=== PATIENT | female | born 1950 | race Caucasian/White ===

== ENCOUNTER → 2018-01-08 09:11 | Outpatient (CLI) | payer MEDICARE, OTHER, SELFPAY ==
[2018-01-08 10:41] LABS: AST(SGOT) 28 U/L (15-37); Alanine Aminotransfer ALT/SGPT 24 U/L (13-56); Albumin, Serum 3.9 g/dL (3.2-5.0); Alkaline Phosphatase 75 U/L (45-117); Bilirubin, Direct 0.18 mg/dL (0.00-0.30); Cholesterol 144 mg/dL (200); Globulin 3.5 g/dL (2.2-4.2); High Density Lipoprotein 40 mg/dL; Protein, Total 7.4 g/dL (6.4-8.2); Triglycerides 120 mg/dL; Very Low Density Lipoprotein 24 mg/dL (5-40)
== END ==
PROVIDERS: Family Provider Family Medicine; PCP Family Medicine; Visit Provider Internal Medicine Cardiovascular Disease
DX: E78.5 Hyperlipidemia, unspecified (principal); Z79.899 Other long term (current) drug therapy
CPT/HCPCS: 36415; 80061; 80076

== ENCOUNTER → 2018-02-23 14:23 | Outpatient (CLI) | payer MEDICARE, OTHER, SELFPAY ==
--- NOTE | 2018-02-23 14:24 | BI_ITS ---
MAMMOGRAPHY - BILATERAL SCREENING REASON FOR EXAM: Female, 67 years old. Routine annual screening examination. PERTINENT HISTORY: Non-contributory. TECHNIQUE: Digital bilateral breast manasa (3D mammographic acquisition) in the CC and MLO projections. 2-D mediolateral oblique (MLO) and craniocaudad (CC) views of both breasts were obtained. CAD: Full Field Digital Mammography with Computer Added Detection was performed. COMPARISON: Comparison is made with prior outside examination dated January 12, 2017. FINDINGS: Breast Composition: The breasts are heterogeneously dense, which may obscure small masses. There are no dominant masses or suspicious calcifications. No other significant abnormalities are identified. There has been no significant change since the prior study. BI/SCREENING MAMM (CAD), BILAT IMPRESSION: Stable bilateral screening mammogram. Yearly follow-up mammogram recommended. (A) ASSESSMENT CATEGORY: BIRADS Category 1: Negative. A letter regarding these results will be sent to the patient by the facility within 30 days. Approximately 10% of breast cancers are not detected by mammography. A normal mammogram should not delay biopsy of a clinically suspicious abnormality. [id number] Electronically Signed: Hugh Perry MD at 8:13 EDT Tel [phone], Service support ,
== END ==
PROVIDERS: Family Provider Family Medicine; PCP Family Medicine; Visit Provider Nurse Practitioner Women's Health
DX: Z12.31 Encounter for screening mammogram for malignant neoplasm of breast (principal)
CPT/HCPCS: 77063; 77067

== ENCOUNTER → 2018-08-13 09:22 | Outpatient (CLI) | payer MEDICARE, OTHER, SELFPAY ==
[2018-08-13 10:42] LABS: AST(SGOT) 28 U/L (15-37); Alanine Aminotransfer ALT/SGPT 26 U/L (13-56); Albumin, Serum 3.9 g/dL (3.2-5.0); Alkaline Phosphatase 71 U/L (45-117); Bilirubin, Direct 0.16 mg/dL (0.00-0.30); Cholesterol 148 mg/dL (200); Globulin 3.3 g/dL (2.2-4.2); High Density Lipoprotein 42 mg/dL; Protein, Total 7.2 g/dL (6.4-8.2); Triglycerides 162 mg/dL; Very Low Density Lipoprotein 32 mg/dL (5-40)
== END ==
PROVIDERS: Family Provider Family Medicine; PCP Family Medicine; Referring Provider Internal Medicine Cardiovascular Disease; Visit Provider Internal Medicine Cardiovascular Disease
DX: E78.5 Hyperlipidemia, unspecified (principal)
CPT/HCPCS: 36415; 80061; 80076

== ENCOUNTER → 2018-09-10 12:40 | Outpatient (CLI) | payer MEDICARE, OTHER, SELFPAY ==
[2018-08-14 07:33] VITALS: BMI 24.0
--- NOTE | 2018-09-10 12:42 | ECHOCS_ITS ---
Reason For Study: HTN Procedure This was a 2D Doppler, Color Flow transthoracic echocardiogram. Contrast injection was performed. Exam performed in department. Left Ventricle Normal LV size. Left ventricular systolic function is lower limits of normal. The estimated ejection fraction is 50 %. Septal motion consistent with IVCD. Stage 1 diastolic dysfunction. No regional wall motion abnormalities noted. Right Ventricle Normal RV size. Normal systolic function. Atria Normal left atrium. Normal right atrium. Mitral Valve Normal mitral valve. Tricuspid Valve Normal tricuspid valve. Mild tricuspid valve insufficiency. Aortic Valve Trisinus/trileaflet aortic valve. Mild (1+) eccentric aortic valve insufficiency. Pulmonic Valve The pulmonic valve is not well visualized. Great Vessels Normal aortic root. Pericardium/Pleural No pericardial effusion. Medication Definity0.3ml given slow IV push to enhance endocardial definition. MMode/2D Measurements & Calculations LVIDd: 4.2 cm IVSd: 1.4 cm LVOT diam: 2.0 cm LVIDs: 3.2 cm LVPWd: 1.0 cm RVDd: 2.9 cm FS: 24.5 % LVOT area: 3.1 cm2 Ao root diam: 3.2 cm LAV(MOD-bp): 34.9 ml LVAd ap4: 25.9 cm2 LAV(MOD-bp) Indexed: 20.7 ml/m2 EDV(MOD-sp4): 73.4 ml LAV(MOD-sp2): 37.4 ml EDV(sp4-el): 79.3 ml LAV(MOD-sp4): 31.1 ml LVAs ap4: 15.9 cm2 ESV(MOD-sp4): 36.8 ml ESV(sp4-el): 37.9 ml EF(MOD-sp4): 49.9 % EF(sp4-el): 52.3 % SV(MOD-sp4): 36.6 ml SV(sp4-el): 41.5 ml LA A4 area: 13.0 cm2 LA dimension(2D): 3.5 cm RA A4 area: 9.0 cm2 Doppler Measurements & Calculations MV E max trever: 50.4 cm/sec Lat Peak E' Trever: 7.0 cm/sec Med Peak E' Trever: 4.1 cm/sec MV A max trever: 83.2 cm/sec E/E' lat: 7.2 E/E' med: 12.2 MV E/A: 0.61 Ao V2 max: 191.3 cm/sec AI max trever: 375.4 cm/sec LV V1 max: 99.7 cm/sec Ao max P.6 mmHg AI max P.5 mmHg LV V1 max P.0 mmHg Ao V2 mean: 126.0 cm/sec LV V1 mean P.1 mmHg Ao mean P.2 mmHg AI dec slope: 264.7 cm/sec2 LV V1 mean: 69.8 cm/sec Ao V2 VTI: 36.8 cm AI P1/2t: 415.4 msec LV V1 VTI: 20.8 cm ANDRZEJ(I,D): 1.7 cm2 ANDRZEJ(V,D): 1.6 cm2 SV(LVOT): 63.7 ml PA V2 max: 95.9 cm/sec TR max trever: 199.7 cm/sec TR max P.0 mmHg Interpretation Summary Normal LV size. Left ventricular systolic function is lower limits of normal. The estimated ejection fraction is 50 %. Septal motion consistent with IVCD. Stage 1 diastolic dysfunction. Contrast injection was performed. Compared to previous study, the left ventricular systolic function has improved.. Ordering Physician: Luis Mcclelland Referring Physician: Jodi Duong Performed By: Sveta Riley RDCS, RVT
== END ==
PROVIDERS: Family Provider Family Medicine; PCP Family Medicine; Referring Provider Internal Medicine Cardiovascular Disease; Visit Provider Internal Medicine Cardiovascular Disease
DX: I44.7 Left bundle-branch block, unspecified (principal)
CPT/HCPCS: 93306; Q9957; A4216; C8929

== ENCOUNTER 2018-09-26 13:00 | Outpatient (RCR) | payer MEDICARE, OTHER, SELFPAY ==
[2018-08-14 07:33] VITALS: BMI 24.0
--- NOTE | 2018-09-07 16:20 | HP.PTEVAL_ITS ---
Patient's Visit Information LOCO LARSON is a 67 year old F referred to Physical Therapy by Jodi Duong DO with a diagnosis of RIGHT SHOULDER RTC TENDONITIS. Date of Evaluation: 09/07/18 Physical Therapist: Roe Cat PT, Cert MDT, OCS - Visit Plan Frequency: 2x /Week Duration: 4 Weeks Plan: RTC/SCAPULAR EX'S,MODLATIES US/ESTIM/CP FOR PAIN RELEIVE MISSAEL,POSTURAL EX'S - Subjective Findings: This 67 y/o female presents to physical therapy right rotator cuff tendonitis. Patient has had right shoulder pain for 3 months. Patient reports incidous onset of shoulder pain ,possible with static postion of sewing.Patient reports symptoms worse with reaching back ,putting on coat ,lifting weight . Better with rest. Patient able to sleep okay at night. Patient able to perform ADL'S ,cleaning. 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 Patient seen DR mahnaz tavarez.Patient symptoms affect ADL'S and QOL. HOBBIES: plays piano,travel,sewing. SOCAIL:. 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 PALPATION:tender long head biceps. NEURO: intact. AROM: shoulder 160 degrees,abduction 160 degrees,ER 90 ,80 degrees pain. FUNCTIONAL TEST: reach behind C7,IR L1. MMT: RTC 4/5 SUPRASPINATOUS 4- 5,DELTOID 4-/5 MILD PAIN - Special Tests R Shoulder External Rotation Lag Test - RC Tear: Negative R Shoulder Supine Impingement Test - RC Tear: Negative R Shoulder Lift Off Test - Subscapular Tear: Negative R Shoulder Drop Sign - IS Test: Negative R Shoulder Empty Can - SS: Negative R Shoulder Belly Press - SupScap: Negative R Shoulder Neer - Impingement: Negative R Shoulder R[place]an Bryn - Impingement: Positive R Shoulder AC Resisted - AC: Negative - Goals Goal 1:: Independant with HEP Goal Time Frame: 4-6 Weeks Goal 2:: Patient to decrease shoulder pain by 60% or greater to improve function and ADLS' Goal Time Frame: 4-6 Weeks Goal 3:: Patient improve strength RTC and deltoid 4/5 without pain with activities Goal Time Frame: 4-6 Weeks Goal 4:: Patient to improve DASH QUICK SHOULDER BY 5-10 points to inmprove QOL. Goal Time Frame: 4-6 Weeks Goal 5:: Patient able to perform ADLS' and certain activities without limitaions. - Rehabilitation Potential Physical Therapy Diagnosis: Patient has right shoulder tendonesis /impinghement along with long head bicep tenoditis with pain with IR and and shoulder add along with weakness which impairs ADL'S thus benifit froms skilled PT Rehabilitation Potential: Good - Anticipated Interventions Patient/Client Instruction: Educate patient on: Condition, Plan of Care For the Purpose of:: To decrease pain, To increase ROM, To improve muscle performance and motor function, To improve ability to perform ADL's, To improve ability of physical actions for home/community/work/leisure, To improve health of tissue, To decrease soft tissue restriction, To increase flexibility/ROM, To improve ability to perform tasks related to life management Therapeutic Exercise to Include: Strength training, Postural training, Flexibilty training, Active ROM, Scapular Strength/Stabilization Comment: RTC For the Purpose of:: To decrease pain, To increase ROM, To increase tolerance to activity/condition/position, To improve ability of physical actions for home/community/work/leisure, To improve health of tissue, To decrease soft tissue restriction, To increase flexibility/ROM, To improve ability to perform tasks related to life management TENS: Yes IF ES: Yes Cryotherapy (ice pack, ice massage): Yes Thermo therapy (hot pack): Yes Ultrasound (thermal/non thermal): Yes For the Purpose of:: To decrease pain, To increase ROM, To improve nutrient delivery to tissue, To increase oxygenation perfusion, To improve health of tissue, To decrease soft tissue restriction Thank you for the opportunity to evaluate your patient. For Medicare and Medicare HMO plans, please review the plan of care and approve it. It will need to be FAXED BACK to us at [phone] for Medicare purposes. For Medicare only, by signing this I certify the plan of care. Please let me know if there are questions or concerns regarding this plan of care. Physician Signature: Date:
--- NOTE | 2018-09-26 13:46 | HP.PTDCSUM ---
HP - PT D/C Summary It has been my pleasure to treat LOCO LARSON under orders from Jodi Duong DO, for the diagnosis of RIGHT SHOULDER RTC TENDONITIS for a total of 7 visit(s). Discharge Date: 09/26/18 Please see the following information for a summary of their discharge status. - Subjective Subjective: Pain is worse with certain activities .Overall stronger - Pain Right Shoulder Pain Intensity (Out of 10): 0 - Overall Improvement % Improvement: 60 - Objective Objective/Function: POSTURE: mild foward posture. PALAPTION: unremarkable. NEURO: denies parathesia/tingling. AROM: shoulder flexion 15 degrees,abd 150,ER 90 degreesIR L3 PAIN. MMT: RTC 4/5 ,DELTOID 4-/5 pain with abd - Goals Goal 1:: Independant with HEP Goal Progress: Goal Met Goal 2:: Patient to decrease shoulder pain by 60% or greater to improve function and ADLS' Goal Progress: Progressing Goal 3:: Patient improve strength RTC and deltoid 4/5 without pain with activities Goal Progress: Progressing Goal 4:: Patient to improve DASH QUICK SHOULDER BY 5-10 points to inmprove QOL. Goal Progress: Progressing Goal 5:: Patient able to perform ADLS' and certain activities without limitaions. Goal Progress: Progressing - Plan Plan: D/C to [facility] - D/C Information Discharge Comments: [facility] If there are questions or concerns regarding this patient's physical therapy, please feel free to call me at [phone]. Thank you for the referral of this patient. Sincerely, Roe Cat, PT, Cert MDT, OCS
== END 2018-09-26 18:22 | disposition home or self-care (01) ==
LOC: PT 13:00
PROVIDERS: Family Provider Family Medicine; PCP Family Medicine; Referring Provider Family Medicine; Visit Provider Family Medicine
DX: M75.81 Other shoulder lesions, right shoulder (principal)
CPT/HCPCS: 97035; 97110; 97162

== ENCOUNTER → 2019-03-13 | Outpatient (CLI) | payer MEDICARE, OTHER, SELFPAY ==
[2018-08-14 07:33] VITALS: BMI 24.0
[2019-02-07 09:15] VITALS: BMI 24.0
--- NOTE | 2019-03-13 10:38 | BI_ITS ---
MAMMOGRAPHY - BILATERAL SCREENING REASON FOR EXAM: Female, 68 years old. Routine annual screening examination. PERTINENT HISTORY: Non-contributory. TECHNIQUE: Digital bilateral breast margarito (3D mammographic acquisition) in the CC and MLO projections. 2-D mediolateral oblique (MLO) and craniocaudad (CC) views of both breasts were obtained. CAD: Full Field Digital Mammography with Computer Added Detection was performed. COMPARISON: Comparison is made with prior study dated February 23, 2018. FINDINGS: Breast Composition: The breasts are heterogeneously dense, which may obscure small masses. There is a 7.4 mm x 7 mm focal area of architectural distortion along the medial aspect of the left breast. This is not well seen on the MLO views. The patient will be recalled for additional views including compression spot views and 90 degree lateral view. No other significant abnormalities are identified. BI/SCREEN MAMM (CAD) W/MARGARITO BILAT IMPRESSION: Focal area of architectural distortion in the left breast as described. The patient will be recalled for additional views. Recall Side: Left Breast ASSESSMENT CATEGORY: BIRADS Category 0: Incomplete. Need additional imaging evaluation. A letter regarding these results will be sent to the patient by the facility within 30 days. Approximately 10% of breast cancers are not detected by mammography. A normal mammogram should not delay biopsy of a clinically suspicious abnormality. [id number] Electronically Signed: Hugh Perry, at 13:43 EDT , Service support ,
--- NOTE | 2019-03-13 10:55 | BD_ITS ---
STUDY: DUAL ENERGY X-RAY ABSORPTIOMETRY / DXA REASON FOR EXAM: Female, 68 years old. The patient is postmenopausal. Loss of height. TECHNIQUE: Bone Mineral Density (BMD) measurements of lumbar spine and bilateral hips were obtained. COMPARISON: None. FINDINGS: Lumbar Spine (L1-L4): g/cm2 (1.071) / T-score (-0.8) / Z-score (0.8) Findings are suggestive of normal bone density with a low fracture risk. Increased kyphosis. Left Femur Total: g/cm2 (0.808) / T-score (-1.6) / Z-score (-0.1) Left Femoral Neck: g/cm2 (0.721) / T-score (-2.3) / Z-score (-0.6) Right Femur Total: g/cm2 (0.808) / T-score (-1.6) / Z-score (-0.1) Right Femoral Neck: g/cm2 (0.721) / T-score (-2.3) / Z-score (-0.6) BD/Dexa Bone Density Study IMPRESSION: The patient is considered osteopenic as outlined below according to World Jeffery Organization (WHO) criteria with a high fracture risk. Reference Information: The T-score is the number of standard deviations above or below the standard which is normal for young adults at their peak bone mineral density. The World Health Organization (WHO) interprets the T-scores as follows: Above -1 Normal bone density Between -1 and -2.5 Osteopenia Equal to / or below -2.5 Osteoporosis As a practical clinical guideline, osteopenia may be graded as follows: Mild -1 through -1.5 Moderate -1.6 through -2.0 Severe -2.1 through -2.4 The Z-score is the number of standard deviations above or below age-matched controls. A Z-score of less than -1.5 would be considered abnormal. References: 1. NIH Osteoporosis and Related Bone Diseases http://www.osteo.org 2. International Society for Clinical Densitometry http://www.iscd.org 3. National Osteoporosis Foundation http://www.nof.org Electronically Signed: Hugh Perry, at 9:28 EDT , Service support ,
== END | disposition home or self-care (01) ==
LOC: OPBI 10:32
PROVIDERS: Family Provider Family Medicine; PCP Family Medicine; Referring Provider Nurse Practitioner Women's Health; Visit Provider Nurse Practitioner Women's Health
DX: Z12.31 Encounter for screening mammogram for malignant neoplasm of breast (principal); Z78.0 Asymptomatic menopausal state
CPT/HCPCS: 77063; 77067; 77080

== ENCOUNTER → 2019-03-15 | Outpatient (CLI) | payer MEDICARE, OTHER, SELFPAY ==
[2019-02-07 09:15] VITALS: BMI 24.0
--- NOTE | 2019-03-15 09:27 | US_ITS ---
STUDY: ULTRASOUND BREAST - LEFT REASON FOR EXAM: Female, 68 years old. Abnormal screening mammogram. TECHNIQUE: Axial and longitudinal images of the LEFT breast were performed with a high resolution ultrasound transducer. COMPARISON: Comparison is made with prior mammogram done earlier today as well as prior mammogram dated March 13, 2019. FINDINGS: LEFT Breast: The entire medial half of the left breast was examined by ultrasound. No solid or cystic mass lesion is seen. This most likely represents asymmetrical glandular tissue on the mammogram. Routine annual mammogram follow-up is recommended. US/Breast Limited Unilateral IMPRESSION: Unremarkable ultrasound of the medial aspect of the left breast. ASSESSMENT CATEGORY: BIRADS Category 2: Benign. A letter regarding these results will be sent to the patient by the facility within 30 days. Electronically Signed: Hugh Perry, at 11:12 EDT , Service support ,
--- NOTE | 2019-03-15 09:29 | BI_ITS ---
MAMMOGRAPHY - UNILATERAL DIAGNOSTIC: LEFT BREAST REASON FOR EXAM: Female, 68 years old. Abnormal screening mammogram. PERTINENT HISTORY: Non-contributory. TECHNIQUE: Compression spot views of the left breast in the mediolateral oblique and craniocaudad views were obtained. CAD: Full Field Digital Mammography with Computer Added Detection was performed. COMPARISON: Comparison is made with prior mammogram dated March 13, 2019. FINDINGS: Breast Composition: The breasts are heterogeneously dense, which may obscure small masses. Persistent focal area of architectural distortion along the medial aspect of the left breast. Correlation with ultrasound is recommended. No other significant abnormalities are identified. BI/DIAG MAMM W/CAD, UNILAT IMPRESSION: Persistent area of architectural distortion along the medial aspect of the breast as described. Correlation with ultrasound is recommended. ASSESSMENT CATEGORY: BIRADS Category 0: Incomplete. Need additional imaging evaluation. A letter regarding these results will be sent to the patient by the facility within 30 days. Approximately 10% of breast cancers are not detected by mammography. A normal mammogram should not delay biopsy of a clinically suspicious abnormality. Electronically Signed: Hugh Perry, at 10:33 EDT , Service support ,
== END | disposition home or self-care (01) ==
LOC: OPBI 09:26
PROVIDERS: Family Provider Family Medicine; PCP Family Medicine; Referring Provider Nurse Practitioner Women's Health; Visit Provider Nurse Practitioner Women's Health
DX: N64.89 Other specified disorders of breast (principal)
CPT/HCPCS: 76642; 77065

== ENCOUNTER → 2019-04-18 | Outpatient (CLI) | payer MEDICARE, OTHER, SELFPAY ==
[2019-02-07 09:15] VITALS: BMI 24.0
--- NOTE | 2019-04-18 13:01 | RAD_ITS ---
STUDY: X-RAY - RIGHT FOOT CLINICAL: Female, 68 years old. Great toe pain and swelling TECHNIQUE: 3 view(s) of the foot. COMPARISON: None. FINDINGS: Normal talus, calcaneus, and tarsal bones. Normal visualized subtalar, talonavicular, calcaneocuboid, tarsal and tarsometatarsal articulations. Normal metatarsi. There is degenerative arthrosis of the metatarsophalangeal joint of the hallux . Normal tibial and fibular sesamoid bones. Normal interphalangeal joint of the great toe. Normal phalanges of the great toe. Normal second through fifth metatarsophalangeal joints. PIP and DIP joint arthrosis. The soft tissue structures are unremarkable. RAD/Foot min 3 Views IMPRESSION: No demonstrated fracture. However, subtle fracture could be present and overlooked due to the overlapping osseous structures. If fracture remains a strong clinical concern, recommend further evaluation with CT First MTP joint, as well as PIP and DIP joint arthrosis Electronically Signed: Mitch Hayes MD at 17:03 EDT , Service support ,
== END | disposition home or self-care (01) ==
LOC: HPRAD 12:58
PROVIDERS: Family Provider Family Medicine; PCP Family Medicine; Referring Provider Family Medicine; Visit Provider Family Medicine
DX: M79.671 Pain in right foot (principal); M79.674 Pain in right toe(s)
CPT/HCPCS: 73630

== ENCOUNTER → 2019-07-12 13:10 | Outpatient (CLI) | payer MEDICARE, OTHER, SELFPAY ==
[2019-02-07 09:15] VITALS: BMI 24.0
--- NOTE | 2019-07-12 13:45 | MRI_ITS ---
STUDY: MRI BRAIN WITH AND WITHOUT CONTRAST (ATTENTION INTERNAL AUDITORY CANALS - I.A.C.'s) REASON FOR EXAM: Female, 68 years old. Vertigo. History of prior right ear surgery. TECHNIQUE: Standardized multiplanar fat and water weighted pulse sequences were obtained. IV Dotarem 14 was administered for the contrast portion of the examination. COMPARISON: MRI of the brain with and without contrast 03/06/2017. FINDINGS: No restricted diffusion to suspect acute or subacute ischemic infarct. No suspicious focal signal abnormalities throughout the brain parenchyma. 1.3 x 0.9 x 1.3 cm T2 hyperintensity focus in the right mastoid antrum. No definite involvement or extension into the semicircular canals of the right membranous labyrinth. There is minimal peripheral contrast enhancement. It is mildly hypointense on T1 and more hypointense on the fat suppression sequence. It is also hypointense on T2 FLAIR sequence. Normal nonenhancing right 7th and 8th nerve bundles. No abnormal contrast enhancement of the right membranous labyrinth. Normal left 7th and 8th nerve bundles without abnormal contrast enhancement. Normal left membranous labyrinth. There is no demonstrated intracanalicular or cisternal vestibular schwannoma (acoustic neuroma). There is no enhancement of the bilateral VIIth or VIIIth cranial nerves. Normal bilateral cochlea, vestibules and semicircular canals. Normal size of the ventricles and extra-axial spaces for the patient's age. Normal white matter tracts of the supratentorial brain. Normal bilateral basal ganglia. Normal thalami. Normal flow voids within the major intracranial circulation suggesting patency by spin echo criteria. Normal venous enhancement. There is no enhancing intra-axial or extra-axial abnormality. There is no extra-axial fluid accumulation. Normal sella turcica, pituitary gland, infundibular stalk, optic chiasm and hypothalamus. Normal tectal plate and pineal gland. Normal midbrain, giuliano and medulla. Normal cerebellum. Normal basal cisterns. No demonstrated orbital abnormality, within the constraints of a routine brain study. Normal visualized paranasal sinuses. Normal calvarium and skull base. Normal visualized soft tissue structures. Normal visualized upper cervical spine. MRI/Brain W/WO Contrast IMPRESSION: 1. 1.3 x 0.9 x 1.3 cm faintly rim-enhancing T1 hypointensity and T2 hyperintensity in the right mastoid antrum/right temporal mastoid bone. This is unchanged. This may be some type of graft if there has been prior right mastoidectomy. CT of the temporal bones will be very helpful for further evaluation. 2. Intact right membranous labyrinth, right internal auditory canal and the right 7th and 8th nerve bundles without abnormal contrast enhancement. 3. Normal left internal auditory canal, left membranous labyrinth and left temporal bone. 4. Normal MRI of the brain with and without contrast. 5. No significant interval changes when compared to 03/06/2017. COMMENT: Baseline CT of the temporal bones will be very helpful for further evaluation. Electronically Signed: Miles Michel MD at 16:04 EST , Service support ,
== END ==
PROVIDERS: Family Provider Family Medicine; PCP Family Medicine; Referring Provider Otolaryngology Otolaryngology/Facial Plastic Surgery; Visit Provider Otolaryngology Otolaryngology/Facial Plastic Surgery
DX: H93.19 Tinnitus, unspecified ear (principal); R42 Dizziness and giddiness
CPT/HCPCS: 70553; A9575

== ENCOUNTER → 2019-07-31 07:43 | Outpatient (CLI) | payer MEDICARE, OTHER, SELFPAY ==
[2019-02-07 09:15] VITALS: BMI 24.0
--- NOTE | 2019-07-31 07:45 | CT_ITS ---
STUDY: CT BRAIN WITH AND WITHOUT CONTRAST REASON FOR EXAM: Female, 68 years old. RADIATION DOSAGE (If Supplied By Facility): CTDIvol = ( 25.9 ) mGy, DLP = ( 1165.39 ) mGycm TECHNIQUE: Transaxial CT imaging of the brain was performed pre and post contrast administration. The examination was performed with intravenous administration of IV 100mL [id number]-370 100. Individualized dose optimization techniques were used for this CT. COMPARISON: None. FINDINGS: Normal soft tissue structures. Normal calvarium. Normal size ventricles and extra-axial spaces for the patient's age. Normal white matter tracts of the cerebral hemispheres. Normal basal ganglia and thalami. Normal brainstem. Normal cerebellum. There is no intracranial hemorrhage. There are no findings of an acute ischemic infarction. Normal visualized paranasal sinuses. CTA of this patient revealed excellent delineation of both anterior, middle, posterior cerebral as well as basilar arteries without evidence of AV malformation or aneurysm no stenosis is seen. The dural sinuses are delineated well as well. No diagnostic abnormality seen. CT/CTA Head W/WO Contrast IMPRESSION: Normal unenhanced and enhanced CT scan of the brain including CTA of the brain. Electronically Signed: Yelena Chery, at 9:41 EST Tel , Service support ,
== END ==
PROVIDERS: Family Provider Family Medicine; PCP Family Medicine; Referring Provider Family Medicine; Visit Provider Family Medicine
DX: H53.19 Other subjective visual disturbances (principal)
CPT/HCPCS: 70496; Q9967

== ENCOUNTER → 2019-08-15 07:56 | Outpatient (CLI) | payer MEDICARE, OTHER, SELFPAY ==
[2019-02-07 09:15] VITALS: BMI 24.0
[2019-08-15 08:44] LABS: AST(SGOT) 24 U/L (15-37); Alanine Aminotransfer ALT/SGPT 25 U/L (13-56); Albumin, Serum 3.8 g/dL (3.2-5.0); Alkaline Phosphatase 79 U/L (45-117); Bilirubin, Direct 0.14 mg/dL (0.00-0.30); Cholesterol 128 mg/dL (200); Globulin 3.6 g/dL (2.2-4.2); High Density Lipoprotein 39 mg/dL; Protein, Total 7.4 g/dL (6.4-8.2); Triglycerides 146 mg/dL; Very Low Density Lipoprotein 29 mg/dL (5-40)
== END ==
PROVIDERS: Family Provider Family Medicine; PCP Family Medicine; Referring Provider Internal Medicine Cardiovascular Disease; Visit Provider Internal Medicine Cardiovascular Disease
DX: E78.5 Hyperlipidemia, unspecified (principal)
CPT/HCPCS: 36415; 80061; 80076

== ENCOUNTER → 2019-09-06 10:19 | Outpatient (CLI) | payer MEDICARE, OTHER, SELFPAY ==
[2019-09-06 08:58] VITALS: BMI 24.7
[2019-09-06 10:39] LABS: Absolute Lymphocyte Count 1.57 X10^3/uL (0.83-4.51); Absolute Neutrophil Count 4.6 X10^3/uL (2.0-7.7); Basophil# 0.07 X10^3/uL; Eosinophil# 0.34 X10^3/uL; Eosinophils% 4.6 % (0-5); Hematocrit 40.8 % (37-47); Hemoglobin 13.3 g/dL (12.0-15.0); Lymphocyte # 1.57 X10^3/ul (4.0); Lymphocyte % 21.4 % (19-41); Mean Corp Hgb Conc 32.6 g/dL (32-36); Mean Corpuscular Hgb 31.4 pg (27.0-32.0); Mean Corpuscular Volume 96.5 fL (81-99); Mean Platelet Vol. 8.5 fl (6.2-12.0); Monocyte# 0.77 X10^3/uL; Monocyte% 10.5 % (0-10); NRBC Flagged by Analyzer 0 % (0-5); Neutrophil # 4.56 X10^3/uL (2.7-7.7); Platelet Count 302 K/mm3 (150-450); RBC Distribution Width CV 12.2 % (11.6-14.6); RBC Distribution Width SD 42.1 fl (35.1-43.9); Red Blood Count 4.23 M/mm3 (4.2-5.4); White Blood Count 7.4 K/mm3 (4.4-11.0)
[2019-09-06 10:51] LABS: Anion Gap 3 (5-15); BUN 15 mg/dL (7-18); BUN/Creat Ratio 11.8 RATIO (10-20); Calcium,Total 8.8 mg/dL (8.5-10.1); Chloride 103 mmol/L (98-107); Creatinine, Serum 1.27 mg/dL (0.55-1.02); EST Glomerular Filtration Rate 44 mL/min (>60); Est Glom Filt Rate - Afr Amer 53 mL/min (>60); Glucose 97 mg/dL (74-106); Potassium 3.2 mmol/L (3.5-5.1); Sodium Level 140 mmol/L (136-145)
[2019-09-06 11:03] LABS: BNP,B-Type NATRIURETIC PEPTIDE 61.9 pg/mL (0-100)
== END ==
PROVIDERS: Family Provider Family Medicine; PCP Family Medicine; Referring Provider Internal Medicine Cardiovascular Disease; Visit Provider Internal Medicine Cardiovascular Disease
DX: E78.5 Hyperlipidemia, unspecified (principal); H53.19 Other subjective visual disturbances; I42.8 Other cardiomyopathies; I44.7 Left bundle-branch block, unspecified; I11.0 Hypertensive heart disease with heart failure; I50.22 Chronic systolic (congestive) heart failure; M81.0 Age-related osteoporosis without current pathological fracture; N95.2 Postmenopausal atrophic vaginitis; R06.09 Other forms of dyspnea
CPT/HCPCS: 36415; 80048; 83880; 85025

== ENCOUNTER → 2019-09-06 11:55 | Outpatient (CLI) | payer MEDICARE, OTHER, SELFPAY ==
[2019-09-06 08:58] VITALS: BMI 24.3
--- NOTE | 2019-09-06 11:57 | ECHOCS_ITS ---
Version 2 Reason For Study: Dyspnea/SOB Procedure This was a 2D Doppler, Color Flow transthoracic echocardiogram. The study was technically difficult. Contrast injection was performed. Exam performed in department. Left Ventricle Normal LV size. Left ventricular systolic function is lower limits of normal. The estimated ejection fraction is 50 %. No regional wall motion abnormalities noted. Right Ventricle Normal RV size. Normal systolic function. Atria Normal left atrium. Normal right atrium. Mitral Valve Normal mitral valve. Mild (1+) eccentric mitral valve insufficiency. Tricuspid Valve Normal tricuspid valve. Mild tricuspid valve insufficiency. Aortic Valve Trisinus/trileaflet aortic valve. Mild (1+) aortic valve insufficiency. Pulmonic Valve The pulmonic valve is not well visualized. Great Vessels Normal aortic root. The pulmonary artery is normal size. Normal inferior vena cava. Pericardium/Pleural No pericardial effusion. Medication 22 gauge I.V. with prn adaptor inserted into right arm. Diluted definity 2ml given slow IV push to enhance endocardial definition. MMode/2D Measurements & Calculations LVIDd: 4.6 cm IVSd: 1.1 cm Ao root diam: 3.3 cm LVIDs: 3.1 cm LVPWd: 0.99 cm LA dimension: 3.7 cm RVDd: 2.5 cm FS: 33.4 % LAV(MOD-bp): 31.9 ml LA A4 area: 10.5 cm2 RA A4 area: 8.0 cm2 LAV(MOD-bp) Indexed: 19.2 ml/m2 LAV(MOD-sp2): 44.6 ml LAV(MOD-sp4): 22.7 ml Time Measurements MV dec time: 0.31 sec Doppler Measurements & Calculations MV E max trever: 47.9 cm/sec Lat Peak E' Trever: 8.1 cm/sec Med Peak E' Trever: 7.0 cm/sec MV A max trever: 74.7 cm/sec E/E' lat: 5.9 E/E' med: 6.9 MV E/A: 0.64 MV V2 max: 85.7 cm/sec MV P1/2t max trever: 66.3 cm/sec Ao V2 max: 119.3 cm/sec MV max P.9 mmHg MV P1/2t: 71.8 msec Ao max P.7 mmHg MV V2 mean: 45.3 cm/sec MV dec slope: 270.7 cm/sec2 Ao V2 mean: 79.4 cm/sec MV mean P.95 mmHg Ao mean P.8 mmHg MV V2 VTI: 22.2 cm MVA(P1/2t): 3.1 cm2 Ao V2 VTI: 24.0 cm AI max trever: 345.9 cm/sec LV V1 max: 88.9 cm/sec PA V2 max: 99.2 cm/sec AI max P.9 mmHg LV V1 max P.2 mmHg AI dec slope: 190.8 cm/sec2 LV V1 mean P.5 mmHg AI P1/2t: 530.9 msec LV V1 mean: 56.4 cm/sec LV V1 VTI: 18.2 cm TR max trever: 220.9 cm/sec TR max P.5 mmHg Interpretation Summary Normal LV size. Left ventricular systolic function is lower limits of normal. The estimated ejection fraction is 50 %. Mild (1+) aortic valve insufficiency. Mild (1+) eccentric mitral valve insufficiency. Contrast injection was performed. Compared to previous study, the left ventricular systolic function is the same.. Ordering Physician: Luis Mcclelland Referring Physician: Luis Mcclelland Performed By: Jorge Cast RCS
== END ==
PROVIDERS: Family Provider Family Medicine; PCP Family Medicine; Referring Provider Internal Medicine Cardiovascular Disease; Visit Provider Internal Medicine Cardiovascular Disease
DX: I44.7 Left bundle-branch block, unspecified (principal); E78.5 Hyperlipidemia, unspecified; H53.19 Other subjective visual disturbances; I42.8 Other cardiomyopathies; I11.0 Hypertensive heart disease with heart failure; I50.22 Chronic systolic (congestive) heart failure; M81.0 Age-related osteoporosis without current pathological fracture; N95.2 Postmenopausal atrophic vaginitis; R06.09 Other forms of dyspnea
CPT/HCPCS: 36415; 80048; 83880; 85025; 93306; Q9957; A4216; C8929

== ENCOUNTER → 2019-09-17 08:53 | Outpatient (CLI) | payer MEDICARE, OTHER, SELFPAY ==
[2019-09-17 08:53] VITALS: BMI 24.0
[2019-09-17 11:06] LABS: Anion Gap 4 (5-15); BUN 25 mg/dL (7-18); BUN/Creat Ratio 17.4 RATIO (10-20); Calcium,Total 8.9 mg/dL (8.5-10.1); Chloride 100 mmol/L (98-107); Creatinine, Serum 1.44 mg/dL (0.55-1.02); EST Glomerular Filtration Rate 38 mL/min (>60); Est Glom Filt Rate - Afr Amer 46 mL/min (>60); Glucose 79 mg/dL (74-106); Potassium 3.5 mmol/L (3.5-5.1); Sodium Level 136 mmol/L (136-145)
== END ==
PROVIDERS: Family Provider Family Medicine; PCP Family Medicine; Referring Provider Internal Medicine Cardiovascular Disease; Visit Provider Internal Medicine Cardiovascular Disease
DX: E78.5 Hyperlipidemia, unspecified (principal); R05 Cough; H53.19 Other subjective visual disturbances; I42.8 Other cardiomyopathies; I11.0 Hypertensive heart disease with heart failure; I50.22 Chronic systolic (congestive) heart failure; I44.7 Left bundle-branch block, unspecified; M81.0 Age-related osteoporosis without current pathological fracture; N95.2 Postmenopausal atrophic vaginitis; R53.83 Other fatigue
CPT/HCPCS: 36415; 80048

== ENCOUNTER → 2019-09-26 09:11 | Outpatient (CLI) | payer MEDICARE, OTHER, SELFPAY ==
[2019-09-18 09:05] VITALS: BMI 23.9
--- NOTE | 2019-09-26 09:16 | US_ITS ---
STUDY: ABDOMINAL ULTRASOUND - RIGHT UPPER QUADRANT REASON FOR VISIT: Female, 68 years old ABD PAIN GALLSTONES TECHNIQUE: Ultrasound evaluation of the right upper quadrant was performed with real-time and static kolb-scale imaging. TECHNICAL QUALITY: Adequate. COMPARISON: None. FINDINGS: Liver: The liver measures 12.8 cm. There is normal echogenicity of the liver. The bile ducts are within normal limits. There is hepatic color flow. The direction of portal flow is hepatopetal. There is no demonstrated mass lesion. Gallbladder: Normal distended gallbladder. The gallbladder wall measures 2.5 mm. There is a negative sonographic Marina''s sign. There is no pericholecystic fluid. There are multiple echogenic structures within the neck of the gallbladder, consistent with multiple gallstones. Common Bile Duct (C.B.D.): The common bile duct measures 5.1 mm. Pancreas: Normal size of the head, body and tail of the pancreas. There is normal echogenicity of the pancreas. There is no demonstrated pancreatic mass or cyst. Right Kidney: Normal size of the right kidney. The right kidney measures 9.1 cm x 3.8 cm x 4.2 cm. Normal renal cortex. The right cortex measures 1.3 cm. There is no demonstrated renal mass or cyst. There is no right hydronephrosis. US/Gallbladder IMPRESSION: Small gallstones are seen in the neck of the gallbladder. Electronically Signed: Hugh Perry, at 14:02 EST , Service support ,
== END ==
PROVIDERS: PCP Family Medicine; Referring Provider Family Medicine; Visit Provider Family Medicine
DX: K80.20 Calculus of gallbladder without cholecystitis without obstruction (principal); R10.11 Right upper quadrant pain
CPT/HCPCS: 76705

== ENCOUNTER → 2019-10-11 10:46 | Outpatient (CLI) | payer MEDICARE, OTHER, SELFPAY ==
[2019-10-11 10:15] VITALS: BMI 23.9
[2019-10-11 12:24] LABS: Anion Gap 3 (5-15); BUN 18 mg/dL (7-18); BUN/Creat Ratio 16.4 RATIO (10-20); Calcium,Total 9.5 mg/dL (8.5-10.1); Chloride 104 mmol/L (98-107); EST Glomerular Filtration Rate 52 mL/min (>60); Est Glom Filt Rate - Afr Amer 63 mL/min (>60); Glucose 86 mg/dL (74-106); Potassium 4.4 mmol/L (3.5-5.1); Sodium Level 140 mmol/L (136-145)
== END ==
PROVIDERS: PCP Family Medicine; Referring Provider Family Medicine; Visit Provider Family Medicine
DX: N28.9 Disorder of kidney and ureter, unspecified (principal); Z51.81 Encounter for therapeutic drug level monitoring
CPT/HCPCS: 36415; 80048

== ENCOUNTER 2019-10-25 07:30 | Day surgery (SDC) | payer MEDICARE, OTHER, SELFPAY ==
--- NOTE | 2019-10-02 02:22 | HP_ITS ---
Intake Vital Signs 10/02/19 Height 5 ft 4 in 10/02/19 Weight: 135 lb 10/02/19 BMI 23.1 10/02/19 BP 107/66 10/02/19 Blood Pressure Location Rt brachial 10/02/19 Position Sitting 10/02/19 Respiration 18 10/02/19 Pulse 72 10/02/19 Pulse Source Monitor 10/02/19 Temp 98.1 F 10/02/19 Temp Source Oral 10/02/19 Pulse Oximetry (%) 98 10/02/19 Oxygen Delivery Method room air Intake Visit Reasons: GALLSTONES/U/S @ [facility] 09/27/2019 Chief Complaint: Gallstones Pull Worker Required: No Is patient in pain?: No Allergies Sulfa (Sulfonamide Antibiotics) Adverse Reaction (Mild, Verified 10/02/19 13:37) Upset Stomach cefdinir [From Omnicef] Adverse Reaction (Verified 10/02/19 13:37) HTN, tight chest discomfort erythromycin base Adverse Reaction (Verified 10/02/19 13:37) nausea lisinopril Adverse Reaction (Verified 10/02/19 13:37) ROSSY cough Medications Aspirin E.C. [Ecotrin] 81 mg PO DAILY 12/30/13 [History Confirmed 10/02/19] Omeprazole [Prilosec] 20 mg PO DAILY 11/06/16 [History Confirmed 10/02/19] calcium carbonate 600 mg calcium (1,500 mg) tablet 600 mg PO BID tab 01/08/18 [History Confirmed 10/02/19] coenzyme Q10 100 mg capsule See Rx Instructions PO QDAY cap 01/08/18 [History Confirmed 10/02/19] lorazepam 1 mg tablet See Rx Instructions PO QHS PRN tab 01/08/18 [History Confirmed 10/02/19] multivitamin See Rx Instructions PO QDAY tab 01/08/18 [History Confirmed 10/02/19] triamcinolone acetonide 55 mcg nasal spray aerosol See Rx Instructions INTRANASAL QAM ml 01/08/18 [History Confirmed 10/02/19] atorvastatin 10 mg tablet 10 mg PO QHS #90 tab 11/26/18 [Rx Confirmed 10/02/19] metoprolol succinate 25 mg tablet,extended release 24 hr 25 mg PO QDAY #90 tab 05/31/19 [Rx Confirmed 10/02/19] losartan 50 mg tablet 50 mg PO QDAY #90 tab 07/12/19 [Rx Confirmed 10/02/19] estradiol See Rx Instructions VAGINAL 2XW #42.5 g 08/26/19 [Rx Confirmed 10/02/19] cholecalciferol (vitamin D3) 2,000 unit tablet 2,000 unit PO DAILY 10/02/19 [History Confirmed 10/02/19] furosemide 40 mg tablet 40 mg PO DAILY tab 10/02/19 [History] levofloxacin 750 mg tablet 750 mg PO Q24H 10/02/19 [History Confirmed 10/02/19] vitamin B complex 1 tab PO DAILY 10/02/19 [History Confirmed 10/02/19] PFSH Medical History 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) Chronic systolic (congestive) heart failure (Chronic) LBBB (left bundle branch block) (Chronic) Essential (primary) hypertension (Chronic) HLD (hyperlipidemia) (Chronic) Gall stones (Chronic) Asthma (Inactive) Conduction disorder of the heart (Inactive) PAC (premature atrial contraction) (Inactive) PVC (premature ventricular contraction) (Inactive) Palpitations (Inactive) Surgical History History of appendectomy (Chronic) History of laparotomy (Chronic ~1986) History of mastoidectomy (Chronic ~1966) History of tubal ligation (Chronic) History of tympanoplasty (Chronic ~1979) History of left heart catheterization (Resolved 04/02/09) Family History (Updated 10/02/19 @ 13:35 by Juana Silveira) Father CAD (coronary artery disease) Myocardial infarction, Onset Age: 54 from [place] Arthritis Brother CVA (cerebral vascular accident), Onset Age: 49 Hypertension Mother CVA (cerebral vascular accident), Onset Age: 54 Social History (Updated 10/02/19 @ 14:22 by Aristides Armas MD) alcohol intake: current alcohol intake frequency: a few times a week Alcohol type: wine substance use type: does not use caffeine: Yes Type: coffee what type of physical activity do you participate in: other frequency: 3-4 times per week duration: 45-60 minutes/day seatbelt use: always do you feel safe at home: Yes additional social history: -Lee Patient and are both retired HPI HPI Surgical H&P: Yes HPI: LOCO LARSON, is a 68 F who presents to the office today for surgical consultation regarding repetitive episodes of epigastric pain postprandially. The patient was referred by her primary care physician Dr. Jodi Duong written copy of my surgical consult recommendations will be returned to her. The patient is a little bit unclear as to exactly how long she has been having the symptoms. Suffice it to say it has been several months. She usually does well if she eats a bland diet but if she travels and eats out then postprandially she will have this severe epigastric pain. No fever or chills or sweats or nausea or vomiting or bright red blood per rectum or melena. She claims that on one trip recently she had a stop at with fill and had a CT was done suggesting gallstones. When she got back home subsequently September 26, 2019 she had a gallbladder ultrasound. Gallbladder wall is 2.5 mm. No pericholecystic fluid. Multi gallstones seen. The common bile duct 5.1 mm. Patient's BUN is 25 and creatinine 1.44 with a GFR of 38. White count 7.4 with a hemoglobin 13.3 hematocrit 40.8 platelet count 302,000. Liver function tests were normal. Unfortunately the patient has 2 other significant medical comorbidities. She claims in the past that she has been diagnosed with an asthma variant. She has been seen by Dr. Tadeo. Recently because of a severe chronic cough and nondescript respiratory symptoms she has been placed on 3 separate courses of antibiotic. She states that he is she has not improved. She has not seen Dr. Tadeo for approximately 2 years. 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 She states that for period of time her ejection fraction was 40% now it has improved to 50%. Her local crawler dragline operator is Dr. Luis henderson. She states that I have previously assisted her with a laparotomy. Those [facility]. She states that she was having gynecologic issues at that time and was assisted by Dr. Simon Gibson as well CREDIT COLLECTION SPECIALIST. She states that her colonoscopy is up-to-date ROS General General: Yes weight change; no appetite, fatigue, colon cancer, breast cancer or weakness HEENT HEENT: Yes eye surgery; no difficulty swallowing, eye injury, swollen glands or hoarseness Endo Endocrine: No thyroid disease, diabetes mellitus, thyroid cancer, Hair loss, heat intolerance or cold intolerance Skin Skin: No rash or changing moles Breast Breast: No left breast lump, right breast lump, nipple discharge, breast pain, abnormal mammogram, abnormal US or breast enlargement Musc Musculoskeletal: Yes arthritis; no back problems, rheumatoid arthritis, gout or joint pain Cardio Cardiovascular: Yes murmur, heart disease and high blood pressure; no pacemaker, atrial fibrillation, heart attack, heart stent, palpitations, shortness of breat with exertion or chest pain Psych Psychiatric: No depression, anxiety or hearing voices Resp Respiratory: No shortness of breath, No sleep apnea, No cough, No COPD, No asthma, No emphysema, No wheezing Gastro Gastrointestinal: Yes abdominal pain, No nausea or vomiting, No diarrhea, No constipation, No blood in stool, Yes acid reflux, No hemorrhoids, No ulcers, Yes gallbladder problem, No black,tarry stools Emile Hematologic: Yes blood thinners, No blood disorders, No bleeding, No anemia, No blood clots Neuro Neurologic: No system reviewed and no additional complaints, except as docu, No as per HPI, No abnormal walking, No abnormal hearing, No abnormal movements, No abnormal speech, No behavioral changes, No burning sensations, No confusion, No seizure-like activity, No unsteadiness, No dizziness, No localized weakness, No frequent falls, No headache(s), No lack of coordination, No loss of vision, No memory loss, No numbness, No other visual disturbances, No radiating pain, No restless legs, No sensory deficit, No fainting, No tingling, No tremor(s), No weakness, No other Exam Const General: cooperative, healthy appearing, comfortable, no acute distress Nutritional Appearance: average body habitus Orientation: alert, awake [facility] Head: normal to inspection Chest Breast Palpation: No nipple discharge Resp Effort & Inspection: normal respiratory effort Auscultation: clear to auscultation bilaterally Cardio Rate: regular rate Rhythm: regular rhythm Heart Sounds: murmur GI Palpation: soft, no hepatosplenomegaly Auscultation: normal bowel sounds Neuro General: alert, awake Cognition: normal cognition Extrem General: no calf tenderness bilaterally Psych Affect: normal affect Assessment & Plan Problems 1. Calculus of gallbladder with chronic cholecystitis without obstruction K80.10 2. Chronic systolic (congestive) heart failure I50.22 3. Chronic renal failure, stage 3 (moderate) N18.3 4. Cough R05 Plan 68-year-old female. Findings are very much consistent with biliary colic chronic cholecystitis cholelithiasis and I am recommending to her a laparoscopic cholecystectomy with selective cholangiography. She is aware of the technique, benefit, risk and alternatives. She has a well-healed infraumbilical midline laparotomy incision. We will need to be careful with entrance. She has a history of viral cardiomyopathy. We will notify Dr. Luis Mcclelland as of our planned surgical approach. She states that she is now completing 3 separate courses of antibiotics for chronic cough and undetermined pulmonary symptoms. Her current treatment is on Levaquin 750 mg daily. She states however that she has not improved. She has concerns that previously she had a pulmonary infection which then led to her cardiac myopathy. With all of that in mind I do believe that she should have gallbladder surgery in the near future. We will try to assist with expediting a pulmonology review to assure that general anesthesia will be appropriate. In addition she is noted to have some chronic renal insufficiency. Recently her values according to her have been more abnormal. She has just recently had a medication change to assist. We will need be very careful and further assessing and following her preoperatively for that. I very much appreciate the kind opportunity of assisting with her surgical care Cc: Dr. Jodi Duong and Dr. Luis Mcclelland and Dr. Shwetha Armas M.D., F.A.C.S. Coding Level of Care Code 08061 Diagnoses Calculus of gallbladder with chronic cholecystitis without obstruction K80.10 ??Cholelithiasis location: gallbladder ??Biliary obstruction: without biliary obstruction Chronic systolic (congestive) heart failure I50.22 Chronic renal failure, stage 3 (moderate) N18.3 Cough R05 10/02/19 1422 <Electronically signed by Aristides casas MD> Date _ Aristides Armas MD I have re-examined the patient. There are no clinical changes since date of exam.
[2019-10-11 10:15] VITALS: BMI 23.9
[2019-10-25] VITALS (7 sets, daily range): BP systolic 113–145; BP diastolic 55–81; PULSE 56–69; RESP 16–20; TEMP 36.5–37.4; O2SAT 93–100; BMI 23.1
--- NOTE | 2019-10-25 07:43 | EKG12_ITS ---
Test Reason : PREOP Blood Pressure : / mmHG Vent. Rate : 066 BPM Atrial Rate : 066 BPM P-R Int : 206 ms QRS Dur : 132 ms QT Int : 432 ms P-R-T Axes : 034 -40 033 degrees QTc Int : 452 ms Normal sinus rhythm Left axis deviation Left bundle branch block Abnormal ECG When compared with ECG of 06-NOV-2016 19:55, Nonspecific T wave abnormality now evident in Inferior leads T wave inversion now evident in Anterior leads Nonspecific T wave abnormality has replaced inverted T waves in Lateral leads QT has shortened Confirmed by BETH MORENO, ARIK ([id number]), image editor HOLGER GUILLEN ([id number]) on 10/28/2019 2:44:22 PM Referred By: Aristides Armas Confirmed By:MELANIE CAMPOS MD
[2019-10-25] MEDS: Lactated Ringers 1,000 ML 100 ML IV ×2 (08:04→10:30)
[2019-10-25 08:25] LABS: Prothrombin Time (Protime)PT. 12.9 SECONDS (11.7-14.9)
--- NOTE | 2019-10-25 08:26 | DCINST_ITS ---
Discharge Diet: Light diet - advance as tolerated - if you have questions about your diet instructions, please talk to you doctor. Discharge Activity: May Not Drive - for 3-5 days or while taking narcotic pain medicine. May shower in (days): 1 Lifting Restrictions: 10 pounds Call your doctor if your incision/area has: Continuous Slow Oozing, Sudden Increased Bleeding, Increased Pain/ Swelling, Increased Redness, Foul Smelling Discharge Call your doctor if you observe: Fever of 101 or Higher Suture Line Care: Avoid Pulling/Pushing, Avoid Pinching/Bending Additional Dressing/Incision Instructions:: Change or remove dressing in 4 days. Leave steri-strips in place for 1 week. Allergies/Adverse Reactions: Allergies Sulfa (Sulfonamide Antibiotics) Adverse Reaction (Mild, Verified 10/25/19 07:57) Upset Stomach cefdinir [From Omnicef] Adverse Reaction (Verified 10/25/19 07:57) HTN, tight chest discomfort erythromycin base Adverse Reaction (Verified 10/25/19 07:57) nausea lisinopril Adverse Reaction (Verified 10/25/19 07:57) ROSSY cough Medications to take at Discharge RX: Aspirin E.C. [Ecotrin] 81 mg PO DAILY 12/30/13 Omeprazole [Prilosec] 20 mg PO DAILY 11/06/16 calcium carbonate 600 mg calcium (1,500 mg) tablet 600 mg PO BID tab 01/08/18 coenzyme Q10 100 mg capsule 100 mg PO QDAY cap 01/08/18 lorazepam 1 mg tablet 0.25 mg PO QHS PRN tab 01/08/18 multivitamin 1 tab PO QDAY tab 01/08/18 triamcinolone acetonide 55 mcg nasal spray aerosol 2 sprays INTRANASAL QAM ml 01/08/18 atorvastatin 10 mg tablet 10 mg PO QHS #90 tab 11/26/18 metoprolol succinate 25 mg tablet,extended release 24 hr 25 mg PO QDAY #90 tab 05/31/19 losartan 50 mg tablet 50 mg PO QDAY #90 tab 07/12/19 cholecalciferol (vitamin D3) 50 mcg (2,000 unit) tablet 2,000 unit PO DAILY 10/02/19 furosemide 40 mg tablet 40 mg PO DAILY tab 10/02/19 vitamin B complex 1 tab PO DAILY 10/02/19 Cetirizine HCl [Zyrtec] 10 mg PO DAILY 10/18/19 RX: Estradiol 1 % VAGINAL 2XW 10/18/19 Orders to be completed after discharge: Partial Thromboplast Time Time Frame: 10/25/19, Facility: [facility], Location: Laboratory Prothrombin Time w/INR Time Frame: 10/25/19, Facility: [facility], Location: Laboratory Primary Care Physician: Jodi Duong DO [Primary Care Provider] - Test Results: Test results from this visit will be discussed in further detail at your follow- up appointment, if applicable. Please Follow Up With: Aristides Armas MD - [phone] When: Call to make an appointment to be seen in about 10 days.
--- NOTE | 2019-10-25 09:10 | RAD_ITS ---
STUDY: INTRAOPERATIVE CHOLANGIOGRAM. REASON FOR EXAM: Female, 69 years old. CALCULUS OF GALLBLADDER, CHRONIC CHOLECYSTITIS; -- NOT FILLING INTO DISTAL DUCT; -- GLUCAGON ADMINISTERED AFTER THIS CINE RUN FLUOROSCOPY TIME (if supplied): ( 38.9 seconds. ) minutes/seconds TECHNIQUE: An intraoperative cholangiogram was performed by the surgeon. Imaging was submitted. COMPARISON: None. FINDINGS: The mid and distal portions of the common duct are not opacified. RAD/Cholangiogram/ O R,Initial IMPRESSION: The mid and distal portions of the common bile duct are not opacified. Electronically Signed: Hugh Perry, at 12:14 EST , Service support ,
--- NOTE | 2019-10-25 09:35 | GALL_PTH ---
PATIENT: LOCO LARSON LOC: [facility] U#:[id number] AGE/SX: 69/F ROOM: RE10/25/[address]: Dr. Aristides Armas MD : [id number] BED: DIS: 10/25/2019 SPEC #: [id number] RECD: 10/25/19 13:11 STATUS: SALEEM REIsidro #: [id number] AKASH: 10/25/19 09:[address]: Aristides Armas DEPT: SURGICAL PATHOLOGY RECD BY: Valentin Hart ENTERED: 10/25/19 13:20 SP TYPE: KULDEEP MARIE DR: Dr. Jodi Duong DO Tissues: Gallbladder, NOS Procedures: Surgery Specimen Level III HEADER OPERATION: Laparoscopic cholecystectomy with IOC PRE-OP DIAGNOSIS: Calculus of gallbladder; chronic cholecystitis TISSUE SUBMITTED: Gallbladder MICROSCOPIC DIAGNOSIS Gallbladder, cholecystectomy: Chronic cholecystitis. AM:laurel 2/24/20 MICROSCOPIC DESCRIPTION Slides are reviewed. GROSS DESCRIPTION Received is one container labeled with the patient's name and designated gallbladder. The specimen consists of a gallbladder measuring 5.5 cm in length and up to 2.5 cm in diameter. The external surface is pink-lenz, smooth and glistening for the most part. Focally it is granular, hemorrhagic and contains cautery artifact. The gallbladder contains a small amount of green-yellow mucoid bile. No stones are identified in the container or in the gallbladder. The mucosa is bile-stained and without any mass lesions. The gallbladder wall measures up to 0.2 cm in thickness. Private Branch Exchange Operator sections from the gallbladder and the cystic duct are submitted in one cassette. / SJ:rg 10/25/19 TC:3 CPT: 21810
--- NOTE | 2019-10-25 09:35 | RAD_ITS ---
STUDY: INTRAOPERATIVE CHOLANGIOGRAM. REASON FOR EXAM: Female, 69 years old. CALCULUS OF GALLBLADDER, CHRONIC CHOLECYSTITIS; -- 2ND CINE RUN POST GLUCAGON ADMINISTRATION; -- SURGEON SUGGESTS POSSIBLE DISTAL DUCT WALL PATHOLOGY/PARTIAL OBSTRUCTION FLUOROSCOPY TIME (if supplied): ( 38.9 seconds ) minutes/seconds TECHNIQUE: An intraoperative cholangiogram was performed by the surgeon following glucagon administration. COMPARISON: Comparison is made with prior study done earlier. FINDINGS: There is dilatation of the common bile duct. There is free flow of contrast into the duodenum. A weblike stenosis is seen in the distal portion of the common bile duct. RAD/Cholangiogram O.R./Subsequent IMPRESSION: No evidence of a retained calculi. Weblike stenosis in the distal common bile duct. Electronically Signed: Hugh Perry, at 12:13 EST , Service support ,
[2019-10-25] MEDS: Bupivacaine Mpf 0.5% 30 ML VIAL (10:00)
--- NOTE | 2019-10-25 10:20 | PCM.OPRPT ---
Problem List (1) Cholelithiasis with chronic cholecystitis Status: Chronic Qualifiers: Cholelithiasis location: gallbladder Biliary obstruction: without biliary obstruction Qualified Code(s): K80.10 - Calculus of gallbladder with chronic cholecystitis without obstruction Report of Operation Date of Procedure: 10/25/19 Pre-Operative Diagnosis: Chronic cholecystitis cholelithiasis Post-Operative Diagnosis: Same Surgery/Procedure Performed:: Laparoscopic cholecystectomy with cholangiograms Description of Surgical Findings:: Timeout and informed consent was obtained. 69-year-old female was taken to the operating placement table underwent general endotracheal intubation anesthesia. Clindamycin 900 mg are given intravenously. The abdomen sterilely prepped and draped. 0.5% Marcaine was used as local anesthetic. Throughout the procedure total 30 cc was used. Skin sites were pre-anesthetized. A supraumbilical vertical incision was created. Sharp dissection carried down through the subtenons tissue. Direct access hole was open but I could not get clean access to the peritoneum. I then went to the right upper quadrant used a 5 mm Visiport technology to gain clean access to the abdomen. The abdomen is insufflated CO2 to a pressure of 10 mmHg pressure. No evidence of any trocar injuries. Inspection revealed copious adhesions of omentum starting at the umbilicus and traveling inferiorly alongside the patient's previous infraumbilical midline incision. There were no adhesions at the site of the planned supraumbilical trocar site and so that trocar was advanced under laparoscopic visualization. Additional 500 trocar was placed in the epigastric and one in the right lateral abdomen. Superficial analysis did not demonstrate any gross superficial problems. The gallbladder appeared to be thin-walled normally distended. Tedious blunt dissection was instituted infundibulum until tedious and carefully the cystic artery cystic duct and critical view was achieved. I did do some electrocautery dissection of the gallbladder peritoneum to facilitate getting an absolute perfect view of the hepatocystic angle. Cystic artery was clipped proximally distally prior to transecting it. Cystic duct was clipped then incision was made and through a 14-gauge Angiocath cholangiogram catheter was inserted. Fluoroscopically control cholangiograms were obtained. Initial flow only was retrograde into the hepatic ductal system. The patient was given a milligram of glucagon. Repeat injection now demonstrated nice flow distally. There appeared that there could have been some material possibly sludge on the sidewall of the very distal common bile duct. There was free flow into the small bowel. Did not see a structure that looked like a stone just a slight filling defect upon the wall of the distal common bile duct. The tissues had been fragile well throughout the procedure I did not have a means from this approach to get further imaging reviewing. Cholangiogram cath was removed. 2 Hem-o-carlos clips were placed on the cystic duct prior to transecting it. The gallbladder was tediously dissected free from the liver bed. Complete hemostasis was intact. There was some spillage of bile but no visualized spillage of any gallstones. The bile spillage was rapidly controlled with a hemo-lock clip. This was due to the very thin nature of the gallbladder. The gallbladder was released immediately placed in a retrieval bag. The right upper quadrant was copiously irrigated and aspirated free of fluid. The liver bed area carefully inspected. Did not see any evidence have any duct of Luschka or biliary leak or bleeding. The right upper quadrant was clean and dry. Gallbladder was exited the umbilicus. The remaining trochars removed under visualization. The abdomen was allowed to deflate of the CO2. The fascia at the umbilicus approximate the running 0 Vicryl. Skin edges approximated opted for Monocryl subdermal stitches. Steri-Strips Telfa and OpSite dressings applied. Sponge and instrument and needle counts were reported to the surgeon be correct. Specimens gallbladder. Drains none. Blood loss minimal. The patient was taken the recovery area in status condition without apparent complication Aristides Armas M.D., F.A.C.S. Type of Anesthesia:: General Anesthesiologist: Prachi Em
[2019-10-25] MEDS: HYDROcodone Bitartrate/Apap 5/325 Tablet PO (12:02)
== END 2019-10-25 14:26 | disposition home or self-care (01) ==
LOC: SDC 07:30 → AC 07:31
PROVIDERS: Anesthesiology; PCP Family Medicine; Referring Provider Surgery; Visit Provider Surgery
PROC: (CPT 47610; principal; 2019-10-25 09:15)
DX: K80.10 Calculus of gallbladder with chronic cholecystitis without obstruction (principal); I13.0 Hypertensive heart and chronic kidney disease with heart failure and stage 1 through stage 4 chronic kidney disease, or unspecified chronic kidney disease; N18.3 Chronic kidney disease, stage 3 (moderate); I50.22 Chronic systolic (congestive) heart failure; I42.8 Other cardiomyopathies; I44.7 Left bundle-branch block, unspecified; E78.5 Hyperlipidemia, unspecified; H53.123 Transient visual loss, bilateral; M19.90 Unspecified osteoarthritis, unspecified site; E78.00 Pure hypercholesterolemia, unspecified; K21.9 Gastro-esophageal reflux disease without esophagitis; Z78.0 Asymptomatic menopausal state; Z79.82 Long term (current) use of aspirin; Z79.899 Other long term (current) drug therapy
CPT/HCPCS: 00790; 47563; 36415; 74300; 74301; 76000; 85610; 85730; 88304; 93005; J7120; J1610; J2405

== ENCOUNTER → 2019-11-12 09:03 | Outpatient (CLI) | payer MEDICARE, OTHER, SELFPAY ==
[2019-10-11 10:15] VITALS: BMI 23.9
[2019-10-25 07:58] VITALS: BMI 23.1
--- NOTE | 2019-11-13 10:34 | PFT ---
INTRODUCTION: The patient is a 69-year-old female that presents for pulmonary function studies secondary to a diagnosis of cough. Respiratory therapy reports good patient effort. Bronchodilators were used during testing. INTERPRETATION: Forced expiration spirometry demonstrates no evidence of a large airways obstructive ventilatory defect. There was no significant response to aerosolized bronchodilators. Spirograms are of good quality and plateau gradually indicating slow emptying of the lungs. Body plethysmography was performed and reveals lung volumes to be within normal limits. Diffusing capacity by single breath CO is also within normal limits at 82% of predicted. IMPRESSION: Normal spirometry, lung volumes and diffusing capacity.
== END ==
PROVIDERS: PCP Family Medicine; Referring Provider Internal Medicine Critical Care Medicine; Visit Provider Internal Medicine Critical Care Medicine
DX: R05 Cough (principal)
CPT/HCPCS: 94060; 94726; 94729

== ENCOUNTER → 2020-03-17 10:33 | Outpatient (CLI) | payer MEDICARE, OTHER, SELFPAY ==
[2020-02-13 09:07] VITALS: BMI 23.1
--- NOTE | 2020-03-17 10:34 | BI_ITS ---
MAMMOGRAPHY - BILATERAL SCREENING REASON FOR EXAM: Female, 69 years old. Routine annual screening examination. PERTINENT HISTORY: Non-contributory. TECHNIQUE: Digital bilateral breast margarito (3D mammographic acquisition) in the CC and MLO projections. 2-D mediolateral oblique (MLO) and craniocaudad (CC) views of both breasts were obtained. CAD: Full Field Digital Mammography with Computer Added Detection was performed. COMPARISON: Comparison is made with prior study dated March 13, 2019 and February 23, 2018. FINDINGS: Breast Composition: The breasts are heterogeneously dense, which may obscure small masses. There are no dominant masses or suspicious calcifications. No other significant abnormalities are identified. There has been no significant change since the prior study. BI/SCREEN MAMM (CAD) W/MARGARITO BILAT IMPRESSION: Stable bilateral screening mammogram. Yearly follow-up mammogram recommended. (A) ASSESSMENT CATEGORY: BIRADS Category 1: Negative. A letter regarding these results will be sent to the patient by the facility within 30 days. Approximately 10% of breast cancers are not detected by mammography. A normal mammogram should not delay biopsy of a clinically suspicious abnormality. [id number] Electronically Signed: Hugh Perry, at 12:18 EDT , Service support ,
== END ==
PROVIDERS: PCP Family Medicine; Referring Provider Nurse Practitioner Women's Health; Visit Provider Nurse Practitioner Women's Health
DX: Z12.31 Encounter for screening mammogram for malignant neoplasm of breast (principal)
CPT/HCPCS: 77063; 77067

== ENCOUNTER → 2020-03-27 08:00 | Outpatient (CLI) | payer MEDICARE, OTHER, SELFPAY ==
[2020-02-13 09:07] VITALS: BMI 23.1
[2020-03-27 08:35] LABS: AST(SGOT) 31 U/L (15-37); Alanine Aminotransfer ALT/SGPT 28 U/L (13-56); Albumin, Serum 3.9 g/dL (3.2-5.0); Alkaline Phosphatase 68 U/L (45-117); Bilirubin, Direct 0.15 mg/dL (0.00-0.30); Cholesterol 163 mg/dL (200); Globulin 3.3 g/dL (2.2-4.2); High Density Lipoprotein 45 mg/dL; Protein, Total 7.2 g/dL (6.4-8.2); Triglycerides 171 mg/dL; Very Low Density Lipoprotein 34 mg/dL (5-40)
== END ==
PROVIDERS: PCP Family Medicine; Referring Provider Internal Medicine Cardiovascular Disease; Visit Provider Internal Medicine Cardiovascular Disease
DX: E78.00 Pure hypercholesterolemia, unspecified (principal); E78.5 Hyperlipidemia, unspecified
CPT/HCPCS: 36415; 80061; 80076

== ENCOUNTER → 2020-09-30 08:37 | Outpatient (CLI) | payer MEDICARE, OTHER, SELFPAY ==
[2020-03-27 14:41] VITALS: BMI 23.6
[2020-09-30 11:52] LABS: AST(SGOT) 28 U/L (15-37); Alanine Aminotransfer ALT/SGPT 26 U/L (13-56); Albumin, Serum 3.8 g/dL (3.2-5.0); Alkaline Phosphatase 67 U/L (45-117); Bilirubin, Direct 0.11 mg/dL (0.00-0.30); Cholesterol 152 mg/dL (200); Globulin 3.4 g/dL (2.2-4.2); High Density Lipoprotein 45 mg/dL; Protein, Total 7.2 g/dL (6.4-8.2); Triglycerides 179 mg/dL; Very Low Density Lipoprotein 36 mg/dL (5-40)
== END ==
PROVIDERS: PCP Family Medicine; Referring Provider Internal Medicine Cardiovascular Disease; Visit Provider Internal Medicine Cardiovascular Disease
DX: E78.00 Pure hypercholesterolemia, unspecified (principal)
CPT/HCPCS: 36415; 80061; 80076

== ENCOUNTER → 2021-03-19 13:54 | Outpatient (CLI) | payer MEDICARE, OTHER, SELFPAY ==
[2020-03-27 14:41] VITALS: BMI 23.6
[2021-02-15 12:58] VITALS: BMI 23.6
--- NOTE | 2021-03-19 14:31 | BI_ITS ---
MAMMOGRAPHY - BILATERAL SCREENING REASON FOR EXAM: Female, 70 years old. Routine annual screening examination. PERTINENT HISTORY: Non-contributory. TECHNIQUE: Digital bilateral breast margarito (3D mammographic acquisition) in the CC and MLO projections. 2-D mediolateral oblique (MLO) and craniocaudad (CC) views of both breasts were obtained. CAD: Full Field Digital Mammography with Computer Added Detection was performed. COMPARISON: Comparison is made with prior study dated 03/17/2020 and 03/13/2019. FINDINGS: Breast Composition: The breasts are heterogeneously dense, which may obscure small masses. There are no dominant masses or suspicious calcifications. No other significant abnormalities are identified. There has been no significant change since the prior study. BI/SCRN MAMM (CAD)W/MARGAIRTO BILAT IMPRESSION: Stable bilateral screening mammogram. Yearly follow-up mammogram recommended. (A) ASSESSMENT CATEGORY: BIRADS Category 1: Negative. A letter regarding these results will be sent to the patient by the facility within 30 days. Approximately 10% of breast cancers are not detected by mammography. A normal mammogram should not delay biopsy of a clinically suspicious abnormality. [id number] Electronically Signed: Hugh Perry MD at 15:12 EDT , Service support ,
== END ==
PROVIDERS: PCP Family Medicine; Referring Provider Nurse Practitioner Women's Health; Visit Provider Nurse Practitioner Women's Health
DX: Z12.31 Encounter for screening mammogram for malignant neoplasm of breast (principal)
CPT/HCPCS: 77063; 77067

== ENCOUNTER → 2021-03-30 07:36 | Outpatient (CLI) | payer MEDICARE, OTHER, SELFPAY ==
[2021-02-15 12:58] VITALS: BMI 23.6
[2021-03-30 08:40] LABS: AST(SGOT) 34 U/L (15-37); Alanine Aminotransfer ALT/SGPT 33 U/L (13-56); Albumin, Serum 3.7 g/dL (3.2-5.0); Alkaline Phosphatase 67 U/L (45-117); Bilirubin, Direct 0.15 mg/dL (0.00-0.30); Cholesterol 149 mg/dL (200); Globulin 3.3 g/dL (2.2-4.2); High Density Lipoprotein 41 mg/dL; Triglycerides 185 mg/dL; Very Low Density Lipoprotein 37 mg/dL (5-40)
== END ==
PROVIDERS: PCP Family Medicine; Referring Provider Internal Medicine Cardiovascular Disease; Visit Provider Internal Medicine Cardiovascular Disease
DX: E78.5 Hyperlipidemia, unspecified (principal); E78.00 Pure hypercholesterolemia, unspecified
CPT/HCPCS: 36415; 80061; 80076

== ENCOUNTER 2021-11-01 09:20 | Outpatient (CLI) | payer MEDICARE, OTHER, SELFPAY ==
[2021-11-01 11:27] LABS: AST(SGOT) 29 U/L (15-37); Alanine Aminotransfer ALT/SGPT 25 U/L (13-56); Albumin, Serum 3.6 g/dL (3.2-5.0); Alkaline Phosphatase 64 U/L (45-117); Bilirubin, Direct 0.12 mg/dL (0.00-0.30); Cholesterol 136 mg/dL (200); Globulin 3.2 g/dL (2.2-4.2); High Density Lipoprotein 43 mg/dL; Protein, Total 6.8 g/dL (6.4-8.2); Triglycerides 138 mg/dL; Very Low Density Lipoprotein 28 mg/dL (5-40)
== END 2021-11-01 23:59 | disposition home or self-care (01) ==
LOC: LAB 09:27
PROVIDERS: PCP Family Medicine; Referring Provider Nurse Practitioner Gerontology; Visit Provider Nurse Practitioner Gerontology
DX: E78.00 Pure hypercholesterolemia, unspecified (principal)
CPT/HCPCS: 36415; 80061; 80076

== ENCOUNTER → 2022-03-22 | Outpatient (CLI) | payer MEDICARE, OTHER, SELFPAY ==
--- NOTE | 2022-03-22 09:07 | BI_ITS ---
MAMMOGRAPHY - BILATERAL SCREENING REASON FOR EXAM: Female, 71 years old. Routine annual screening examination. PERTINENT HISTORY: Non-contributory. TECHNIQUE: Digital bilateral breast margarito (3D mammographic acquisition) in the CC and MLO projections. 2-D mediolateral oblique (MLO) and craniocaudad (CC) views of both breasts were obtained. CAD: Full Field Digital Mammography with Computer Added Detection was performed. COMPARISON: Comparison is made with prior study of 03/17/2020 and 03/13/2019. FINDINGS: Breast Composition: The breasts are heterogeneously dense, which may obscure small masses. There are no dominant masses or suspicious calcifications. No other significant abnormalities are identified. There has been no significant change since the prior study. BI/SCRN MAMM (CAD)W/MARGARITO BILAT IMPRESSION: Stable bilateral screening mammogram. Yearly follow-up mammogram recommended. (A) ASSESSMENT CATEGORY: BIRADS Category 1: Negative. A letter regarding these results will be sent to the patient by the facility within 30 days. Approximately 10% of breast cancers are not detected by mammography. A normal mammogram should not delay biopsy of a clinically suspicious abnormality. [id number] Electronically Signed: Hugh Perry MD at 10:44 EDT ,
== END | disposition home or self-care (01) ==
LOC: OPBI 09:02
PROVIDERS: PCP Family Medicine; Visit Provider Obstetrics & Gynecology
DX: Z12.31 Encounter for screening mammogram for malignant neoplasm of breast (principal)
CPT/HCPCS: 77063; 77067

== ENCOUNTER → 2022-03-29 | Outpatient (CLI) | payer MEDICARE, OTHER, SELFPAY ==
[2022-03-29 08:41] LABS: AST(SGOT) 33 U/L (15-37); Alanine Aminotransfer ALT/SGPT 27 U/L (13-56); Albumin, Serum 3.5 g/dL (3.2-5.0); Alkaline Phosphatase 60 U/L (45-117); Bilirubin, Direct 0.14 mg/dL (0.00-0.30); Cholesterol 135 mg/dL (200); Globulin 3.3 g/dL (2.2-4.2); High Density Lipoprotein 42 mg/dL; Protein, Total 6.8 g/dL (6.4-8.2); Triglycerides 152 mg/dL; Very Low Density Lipoprotein 30 mg/dL (5-40)
[2022-03-29 11:50] LABS: Anion Gap 3 (5-15); BUN 22 mg/dL (7-18); BUN/Creat Ratio 16.5 RATIO (10-20); Calcium,Total 9.3 mg/dL (8.5-10.1); Chloride 106 mmol/L (98-107); Creatinine, Serum 1.33 mg/dL (0.55-1.02); EST Glomerular Filtration Rate 42 mL/min (>60); Est Glom Filt Rate - Afr Amer 50 mL/min (>60); Glucose 94 mg/dL (74-106); Potassium 3.9 mmol/L (3.5-5.1); Sodium Level 142 mmol/L (136-145)
== END | disposition home or self-care (01) ==
LOC: LAB 07:42
PROVIDERS: Internal Medicine Cardiovascular Disease; PCP Family Medicine; Referring Provider Nurse Practitioner Gerontology; Visit Provider Nurse Practitioner Gerontology
DX: I42.8 Other cardiomyopathies (principal); I50.22 Chronic systolic (congestive) heart failure; I13.0 Hypertensive heart and chronic kidney disease with heart failure and stage 1 through stage 4 chronic kidney disease, or unspecified chronic kidney disease; N18.30 Chronic kidney disease, stage 3 unspecified; I44.7 Left bundle-branch block, unspecified; E78.5 Hyperlipidemia, unspecified
CPT/HCPCS: 36415; 80048; 80061; 80076

== ENCOUNTER → 2022-04-18 | Outpatient (CLI) | payer MEDICARE, OTHER, SELFPAY ==
--- NOTE | 2022-04-18 12:45 | ECHOD_ITS ---
Reason For Study: DYSPNEA Procedure This was a 2D Doppler, Color Flow transthoracic echocardiogram. The study was technically difficult. Contrast injection was performed. Exam performed in department. Left Ventricle Normal LV size. The estimated ejection fraction is 53 %. Septal motion consistent with IVCD. Stage 1 diastolic dysfunction. No regional wall motion abnormalities noted. Right Ventricle Normal RV size. Normal systolic function. Atria Normal left atrium. Normal right atrium. Mitral Valve Normal mitral valve. Tricuspid Valve Normal tricuspid valve. Aortic Valve Normal aortic valve. Pulmonic Valve Normal pulmonic valve. Great Vessels Normal aortic root. The pulmonary artery is normal size. Normal inferior vena cava. Pericardium/Pleural No pericardial effusion. Medication 22 gauge I.V. with prn adaptor inserted into right arm. Diluted definity 2ml given slow IV push to enhance endocardial definition. MMode/2D Measurements & Calculations LVIDd: 4.4 cm IVSd: 1.1 cm Ao root diam: 3.3 cm LVIDs: 3.3 cm LVPWd: 1.4 cm FS: 25.7 % LAV(MOD-sp4): 21.3 ml LVAd ap4: 31.6 cm2 SV(MOD-sp4): 54.4 ml LVLd ap4: 8.4 cm EDV(MOD-sp4): 100.4 ml EDV(sp4-el): 100.6 ml LVAs ap4: 18.9 cm2 LVLs ap4: 6.5 cm ESV(MOD-sp4): 46.0 ml ESV(sp4-el): 46.7 ml EF(MOD-sp4): 54.2 % EF(sp4-el): 53.6 % SV(sp4-el): 53.9 ml LA A4 area: 10.3 cm2 RA A4 area: 9.8 cm2 Doppler Measurements & Calculations MV E max sole: 35.1 cm/sec MV V2 max: 71.8 cm/sec Ao V2 max: 86.6 cm/sec MV A max sole: 60.9 cm/sec MV max P.1 mmHg Ao max P.0 mmHg MV E/A: 0.58 MV V2 mean: 46.0 cm/sec Ao V2 mean: 58.9 cm/sec MV mean P.94 mmHg Ao mean P.6 mmHg MV V2 VTI: 22.4 cm Ao V2 VTI: 19.4 cm LV V1 max: 90.2 cm/sec PA V2 max: 94.2 cm/sec LV V1 max P.3 mmHg PA V2 mean: 64.5 cm/sec LV V1 mean P.9 mmHg LV V1 mean: 63.3 cm/sec LV V1 VTI: 19.0 cm ECHO/Echo Complete W/ Contrast Interpretation Summary Normal LV size. The estimated ejection fraction is 53 %. Septal motion consistent with IVCD. Stage 1 diastolic dysfunction. Contrast injection was performed. Ordering Physician: Luis Mcclelland Referring Physician: Jodi Duong Performed By: Reyna Pearson RCS
== END | disposition home or self-care (01) ==
LOC: CVS 12:44
PROVIDERS: PCP Family Medicine; Visit Provider Internal Medicine Cardiovascular Disease
DX: R06.02 Shortness of breath (principal); I50.22 Chronic systolic (congestive) heart failure
CPT/HCPCS: 93306; Q9957; A4216; C8929

== ENCOUNTER → 2022-06-29 | Outpatient (CLI) | payer MEDICARE, OTHER, SELFPAY ==
--- NOTE | 2022-06-29 10:37 | BD_ITS ---
STUDY: DUAL ENERGY X-RAY ABSORPTIOMETRY / DXA REASON FOR EXAM: Female, 71 years old. M810 TECHNIQUE: Bone Mineral Density (BMD) measurements of lumbar spine and bilateral hips were obtained. COMPARISON: Comparison is made with prior study dated 03/13/2019. FINDINGS: Lumbar Spine (L1-L4): g/cm2 (0.956) / T-score (-0.8) / Z-score (1.5) Findings are suggestive of normal bone density with a low fracture risk. Left Femur Total: g/cm2 (0.759) / T-score (-1.5) / Z-score (0.2) Left Femoral Neck: g/cm2 (0.585) / T-score (-2.4) / Z-score (-0.4) Right Femur Total: g/cm2 (0.767) / T-score (-1.4) / Z-score (0.3) Right Femoral Neck: g/cm2 (0.587) / T-score (-2.4) / Z-score (-0.4) The T-Scores on the most recent prior examination were: Lumbar Spine (L1-L4): There has been worsening of bone density since the previous examination. Left Femur Total: which represents an improvement of 1.5%. Right Femur Total: which represents an improvement of 2.6%. BD/Dexa Bone Density Study IMPRESSION: The patient is considered osteopenic as outlined below according to World Jeffery Organization (WHO) criteria with a high fracture risk. There has been improvement of bone density since the previous examination. Reference Information: The T-score is the number of standard deviations above or below the standard which is normal for young adults at their peak bone mineral density. The World Health Organization (WHO) interprets the T-scores as follows: Above -1 Normal bone density Between -1 and -2.5 Osteopenia Equal to / or below -2.5 Osteoporosis As a practical clinical guideline, osteopenia may be graded as follows: Mild -1 through -1.5 Moderate -1.6 through -2.0 Severe -2.1 through -2.4 The Z-score is the number of standard deviations above or below age-matched controls. A Z-score of less than -1.5 would be considered abnormal. References: 1. NIH Osteoporosis and Related Bone Diseases www osteo.org 2. International Society for Clinical Densitometry www iscd.org 3. National Osteoporosis Foundation www nof.org Electronically Signed: Hugh Perry MD at 15:18 EDT ,
== END | disposition home or self-care (01) ==
PROVIDERS: PCP Family Medicine; Visit Provider Family Medicine
DX: M81.0 Age-related osteoporosis without current pathological fracture (principal)
CPT/HCPCS: 77080

== ENCOUNTER 2022-12-25 09:27 | Emergency (ER) | payer MEDICARE, OTHER, SELFPAY ==
[2022-12-25 09:27] VITALS: BP 138/59; PULSE 87; RESP 16; TEMP 36.4; O2SAT 97; BMI 23.3
--- NOTE | 2022-12-25 09:42 | ED.VIS.LOWEX ---
HPI History of Present Illness Chief Complaint: Lower Extremity Injury Detail of Chief Complaint: Left ankle pain Informant: patient Onset/Context/Timing Onset: Today Narrative Narrative: Patient presents with left ankle pain that she noted when she woke this morning. She denies any injury and states she felt well when she went to bed last night. No change in activity recently and states that she sat at some basketball games yesterday and was rather sedentary. She denies history of gout. [facility] Medical History Asthma Atrophic vaginitis Cholelithiasis with chronic cholecystitis Chronic renal failure, stage 3 (moderate) Chronic systolic (congestive) heart failure Conduction disorder of the heart Essential (primary) hypertension Gall stones HLD (hyperlipidemia) Hypokalemia LBBB (left bundle branch block) Non-ischemic cardiomyopathy Osteopenia after menopause PAC (premature atrial contraction) Palpitations PVC (premature ventricular contraction) Scintillating scotoma of both eyes Home Medications aspirin 81 mg tablet,delayed release 81 mg PO DAILY 12/30/13 [History Last Taken 11/06/16] omeprazole 20 mg capsule,delayed release 20 mg PO DAILY 11/06/16 [History Last Taken 10/25/19] calcium carbonate 600 mg calcium (1,500 mg) tablet (Calcium) 600 mg PO BID 01/08/18 [History Last Taken Unknown] coenzyme Q10 100 mg capsule 100 mg PO QDAY 01/08/18 [History Last Taken Unknown] lorazepam 1 mg tablet 0.25 mg PO QHS PRN Anxiety 01/08/18 [History Last Taken Unknown] multivitamin 1 tab PO QDAY 01/08/18 [History Last Taken Unknown] triamcinolone acetonide 55 mcg nasal spray aerosol (Nasacort) 2 sprays intranasal QAM 01/08/18 [History Last Taken Unknown] cholecalciferol (vitamin D3) 50 mcg (2,000 unit) tablet 2,000 unit PO DAILY 10/02/19 [History Last Taken Unknown] vitamin B complex (B Complex-Vitamin B12 tablet) 1 tab PO DAILY 10/02/19 [History Last Taken Unknown] cetirizine 10 mg capsule 10 mg PO DAILY 10/18/19 [History Last Taken Unknown] furosemide 40 mg tablet See Rx Instructions .Route .COMPLEX #90 tabs 01/05/22 [Rx Last Taken Unknown] atorvastatin 10 mg tablet 10 mg PO QHS #90 tabs 01/24/22 [Rx Last Taken Unknown] estradiol 0.01% (0.1 mg/gram) vaginal cream See Rx Instructions vaginal 2XW #42.5 grams 02/24/22 [Rx Last Taken Unknown] losartan 50 mg tablet 50 mg PO QDAY #90 tabs 05/04/22 [Rx Last Taken Unknown] metoprolol succinate 25 mg tablet,extended release 24 hr (Toprol XL) 25 mg PO QDAY #90 tabs 05/23/22 [Rx Last Taken Unknown] prednisone 20 mg tablet 40 mg PO DAILY #8 tabs 12/25/22 [Rx Last Taken Unknown] Allergy/AdvReac Type Severity Reaction Status Date / Time Sulfa (Sulfonamide AdvReac Mild Upset Verified 12/25/22 09:29 Antibiotics) Stomach cefdinir [From Omnicef] AdvReac HTN, tight Verified 12/25/22 09:29 chest discomfort erythromycin base AdvReac nausea Verified 12/25/22 09:29 lisinopril AdvReac RICH cough Verified 12/25/22 09:29 Family History Father CAD (coronary artery disease) Myocardial infarction, Onset Age: 54 from [place] Arthritis Brother CVA (cerebral vascular accident), Onset Age: 49 Hypertension Mother CVA (cerebral vascular accident), Onset Age: 54 Surgical History History of appendectomy History of cholecystectomy (10/25/19) History of laparotomy (~1986) History of left heart catheterization (04/02/09) History of mastoidectomy (~1966) History of tubal ligation History of tympanoplasty (~1979) Social History Smoking Status: Never smoker alcohol intake: current alcohol intake frequency: a few times a week Alcohol type: wine substance use type: does not use caffeine: Yes Type: coffee what type of physical activity do you participate in: other details: Hi/Low frequency: 3-4 times per week duration: 45-60 minutes/day seatbelt use: always do you feel safe at home: Yes additional social history: -Lee Patient and are both retired ROS ROS ED Constitutional Constitutional ED: Denies chills or fever(s) Eyes Eyes: Denies change in vision ENT ENT ED: Denies rhinorrhea or sore throat Cardiovascular Cardiovascular: Denies chest pain or palpitations Respiratory/Chest Respiratory/Chest: Denies cough or dyspnea Gastrointestinal Gastrointestinal: Denies abdominal pain, nausea or vomiting Musculoskeletal Musculoskeletal: Reports extremity pain; Denies back pain Integumentary Denies Abrasions or rash Neurologic Neurologic: Denies headache(s) or weakness Allergic/Immunologic Allergic/Immunologic ED: Denies lip swelling or urticaria EXAM Physical Exam Const Vital Signs: 12/25/22 09:27 Temperature 97.6 F L Temperature Source Temporal Pulse Rate 87 Respiratory Rate 16 Blood Pressure 138/59 H Blood Pressure Mean 85 Pulse Ox 97 Oxygen Delivery Method Room Air Positive well nourished and well developed General Appearance ED: well developed HEENT Reports normocephalic and head/scalp atraumatic Eyes PERRL and EOMs intact bilaterally Neck supple Chest Wall inspection of chest normal and palpation of chest normal Resp normal respiratory effort and clear to auscultation bilaterally Cardio regular rate and regular rhythm GI normal to inspection, nondistended, normoactive bowel sounds Palpation: soft Back/Spine no CVA tenderness Extremity Extremity Narrative: Tenderness palpation on the distal aspect of the medial malleolus of the left ankle. Minimal erythema noted. Good range of motion with slight increased pain with dorsiflexion. No tenderness over the foot itself. No tenderness at the knee or proximal fibula. Neuro oriented x3 and no sensory deficits noted Sensorium / Orientation: alert Motor Exam: strength 5/5 throughout Psych mental status grossly normal MDM MDM MDM Narrative Medical decision making narrative: Left ankle x-rays obtained. Radiography Diagnostic Testing: Clinical Impression(s) from Imaging Studies Ankle X-Ray 12/25/22 09:50 IMPRESSION: Normal x-ray examination of the ankle. Electronically Signed: Mitch Hayes MD at 10:09 EDT , Treatment and Re-Evaluation Narrative: Left ankle x-ray per my interpretation reveals no evidence of bony injury. Radiology interpretation is reviewed and agrees. Rich wrap was applied to the ankle. She attempted to get up but states he is not able to place any weight on her ankle. She is given a dose of prednisone and is able to ambulate with assistance of a walker. I think she likely has tendinitis that she is tender along the medial tendon/ligament sheath. There is minimal erythema, but I do not believe this represents acute gout. I will treat her with a short burst of steroids which would be appropriate treatment in both conditions. Discharge Plan Triage Chief Complaint: Lower Extremity Injury ED Provider: Dipika Gutierrez Dx/Rx/DC Orders Clinical Impression: Tendinitis Instructions: ED Tendonitis Prescriptions: New prednisone 20 mg tablet 40 mg PO DAILY Qty: 8 0RF No Action calcium carbonate [Calcium 600] 600 mg calcium (1,500 mg) tablet 600 mg PO BID multivitamin tablet 1 tab PO QDAY Label Comments: one tablet PO QDAY Rx Instructions: one tablet PO QDAY coenzyme Q10 100 mg capsule 100 mg PO QDAY Label Comments: One capsule PO QDAY Rx Instructions: One capsule PO QDAY lorazepam 1 mg tablet 0.25 mg PO QHS PRN (Reason: Anxiety) Label Comments: 1/4 to 1 tablet PO QHS PRN Rx Instructions: 1/4 to 1 tablet PO QHS PRN triamcinolone acetonide [Nasacort] 55 mcg aerosol,spray 2 sprays INTRANASAL QAM Label Comments: 2 sprays INTRANASAL QAM Rx Instructions: 2 sprays INTRANASAL QAM cholecalciferol (vitamin D3) 2,000 unit tablet 2,000 unit PO DAILY vitamin B complex [B Complex-Vitamin B12] Tablet 1 tab PO DAILY estradiol 0.01 % (0.1 mg/gram) cream See Rx Instructions vaginal 2XW Qty: 42.5 2RF Rx Instructions: small amount vaginal twice a week; use small amount VAGINAL 2XW aspirin 81 MG tablet 81 mg PO DAILY Label Comments: blood thinner omeprazole 20 MG capsule 20 mg PO DAILY cetirizine 10 MG capsule 10 mg PO DAILY furosemide 40 mg tablet See Rx Instructions .ROUTE .COMPLEX Qty: 90 4RF Dose Instruction: TAKE 1 TABLET BY MOUTH EVERY DAY Rx Instructions: TAKE 1 TABLET BY MOUTH EVERY DAY atorvastatin 10 mg tablet 10 mg PO QHS Qty: 90 3RF Label Comments: cholesterol losartan 50 mg tablet 50 mg PO QDAY Qty: 90 3RF metoprolol succinate [Toprol XL] 25 mg tablet extended release 24 hr 25 mg PO QDAY Qty: 90 3RF Rx Instructions: One tablet PO QDAY Primary Care Provider: Jodi Duong Referrals: Jodi Duong DO [Primary Care Provider] - 1 Week Disposition Disposition: Home, Self Care
--- NOTE | 2022-12-25 09:50 | RAD_ITS ---
STUDY: X-RAY - LEFT ANKLE REASON FOR EXAM: Female, 72 years old. Pain TECHNIQUE: 3 view(s) of the ankle. COMPARISON: None. FINDINGS: Normal visualized distal tibia and fibula. Normal medial and lateral malleoli. Normal tibiotalar articulation and ankle mortise. Normal visualized talus and calcaneus. The visualized subtalar, talonavicular, calcaneocuboid and tarsal articulations are normal. The soft tissue structures are unremarkable. RAD/Ankle min 3 Views IMPRESSION: Normal x-ray examination of the ankle. Electronically Signed: Mitch Hayes MD at 10:09 EDT ,
[2022-12-25] MEDS: predniSONE 20 MG Tablet 60 MG PO (11:29)
--- NOTE | 2022-12-26 12:49 | ED.RN ---
family member returned walker stating that it does not fit through any of our doors. family member demanding regarding the return of the walker. this rn called [facility] and was instructed to put the walker with pt information in the closet and they would be up to get it.
== END 2022-12-25 12:39 | disposition home or self-care (01) ==
PROVIDERS: Emergency Provider Emergency Medicine; PCP Family Medicine; Visit Provider Emergency Medicine
DX: M77.9 Enthesopathy, unspecified (principal); I13.0 Hypertensive heart and chronic kidney disease with heart failure and stage 1 through stage 4 chronic kidney disease, or unspecified chronic kidney disease; I50.22 Chronic systolic (congestive) heart failure; N18.30 Chronic kidney disease, stage 3 unspecified; E78.5 Hyperlipidemia, unspecified; Z79.82 Long term (current) use of aspirin
CPT/HCPCS: 73610; 99283

== ENCOUNTER → 2022-12-30 | Outpatient (CLI) | payer MEDICARE, OTHER, SELFPAY ==
[2022-12-30 14:03] LABS: Absolute Lymphocyte Count 2.83 X10^3/uL (0.83-4.51); Absolute Neutrophil Count 6.5 X10^3/uL (2.0-7.7); Basophil# 0.06 X10^3/uL; Basophil% 0.6 % (0-1); Eosinophil# 0.13 X10^3/uL; Eosinophils% 1.3 % (0-5); Hemoglobin 15.3 g/dL (12.0-15.0); Lymphocyte # 2.83 X10^3/ul (0.83-4.51); Lymphocyte % 27.4 % (19-41); Mean Corp Hgb Conc 32.6 g/dL (32-36); Mean Corpuscular Hgb 32.2 pg (27.0-32.0); Mean Corpuscular Volume 98.9 fL (81-99); Mean Platelet Vol. 9.2 fl (6.2-12.0); Monocyte# 0.74 X10^3/uL; Monocyte% 7.2 % (0-10); NRBC Flagged by Analyzer 0 % (0-5); Neutrophil # 6.47 X10^3/uL (2.7-7.7); Neutrophil % 62.7 % (47-70); Platelet Count 301 K/mm3 (150-450); RBC Distribution Width SD 47.1 fl (35.1-43.9); Red Blood Count 4.75 M/mm3 (4.2-5.4); White Blood Count 10.3 K/mm3 (4.4-11.0)
[2022-12-30 14:29] LABS: ALB/GLOB Ratio 1.2 RATIO (0.9-2.4); AST(SGOT) 32 U/L (15-37); Alanine Aminotransfer ALT/SGPT 34 U/L (13-56); Albumin, Serum 3.7 g/dL (3.2-5.0); Alkaline Phosphatase 63 U/L (45-117); Anion Gap 5 (5-15); BUN 23 mg/dL (7-18); Calcium,Total 9.3 mg/dL (8.5-10.1); Chloride 102 mmol/L (98-107); Creatinine, Serum 1.44 mg/dL (0.55-1.02); EST Glomerular Filtration Rate 38 mL/min (>60); Est Glom Filt Rate - Afr Amer 46 mL/min (>60); Globulin 3.2 g/dL (2.2-4.2); Glucose 156 mg/dL (74-106); Potassium 3.3 mmol/L (3.5-5.1); Protein, Total 6.9 g/dL (6.4-8.2); Sodium Level 139 mmol/L (136-145); Uric Acid 8.2 mg/dL (2.6-6.0)
== END | disposition home or self-care (01) ==
LOC: LAB 13:23
PROVIDERS: PCP Family Medicine; Referring Provider Podiatrist; Visit Provider Podiatrist
DX: M10.372 Gout due to renal impairment, left ankle and foot (principal)
CPT/HCPCS: 36415; 80053; 84550; 85025

== ENCOUNTER 2023-02-02 15:35 | Outpatient (CLI) | payer MEDICARE, OTHER, SELFPAY ==
--- NOTE | 2023-02-02 15:38 | RAD_ITS ---
STUDY: X-RAY CHEST REASON FOR EXAM: Female, 72 years old. Fever. Mild crackles. TECHNIQUE: PA and lateral views of the chest. COMPARISON: August 18, 2014. FINDINGS: Improved inspiratory effort. There is minimal linear density at the right lung base. No acute infiltrate or mass. The left pleural effusion and atelectasis seen previously has resolved. There is no demonstrated pleural abnormality. Normal size heart. Normal mediastinum and rickie. Normal visualized pulmonary arteries. There is atherosclerotic calcification of the aortic arch with tortuosity. There are diffuse degenerative changes of the visualized thoracic spine. There is degenerative osteoarthritis of the bilateral shoulders. There is no demonstrated abnormality of the visualized soft tissue structures of the upper abdomen. RAD/Chest PA and Lateral IMPRESSION: Degenerative changes, as described above. No demonstrated acute cardiopulmonary process. Electronically Signed: Elliott Lange DO at 19:21 EDT ,
== END 2023-02-02 23:59 | disposition home or self-care (01) ==
PROVIDERS: PCP Family Medicine; Referring Provider Family Medicine; Visit Provider Family Medicine
DX: R50.9 Fever, unspecified (principal); M10.9 Gout, unspecified
CPT/HCPCS: 36415; 71046; 80053; 85025; 86617; 87040

== ENCOUNTER → 2023-02-02 | Outpatient (CLI) | payer MEDICARE, OTHER, SELFPAY ==
[2023-02-02 18:24] LABS: Absolute Lymphocyte Count 1.06 X10^3/uL (0.83-4.51); Absolute Neutrophil Count 3.5 X10^3/uL (2.0-7.7); Basophil# 0.08 X10^3/uL; Basophil% 1.6 % (0-1); Eosinophil# 0.23 X10^3/uL; Eosinophils% 4.5 % (0-5); Hematocrit 42.5 % (37-47); Hemoglobin 14.2 g/dL (12.0-15.0); Lymphocyte # 1.06 X10^3/ul (0.83-4.51); Lymphocyte % 20.7 % (19-41); Mean Corp Hgb Conc 33.4 g/dL (32-36); Mean Corpuscular Hgb 32.5 pg (27.0-32.0); Mean Corpuscular Volume 97.3 fL (81-99); Mean Platelet Vol. 9.9 fl (6.2-12.0); Monocyte# 0.18 X10^3/uL; Monocyte% 3.5 % (0-10); NRBC Flagged by Analyzer 0 % (0-5); Neutrophil # 3.51 X10^3/uL (2.7-7.7); Neutrophil % 68.7 % (47-70); Platelet Count 171 K/mm3 (150-450); RBC Distribution Width CV 13.1 % (11.6-14.6); RBC Distribution Width SD 46.7 fl (35.1-43.9); Red Blood Count 4.37 M/mm3 (4.2-5.4); White Blood Count 5.1 K/mm3 (4.4-11.0)
[2023-02-02 18:41] LABS: ALB/GLOB Ratio 0.9 RATIO (0.9-2.4); AST(SGOT) 56 U/L (15-37); Alanine Aminotransfer ALT/SGPT 59 U/L (13-56); Albumin, Serum 3.3 g/dL (3.2-5.0); Alkaline Phosphatase 100 U/L (45-117); Anion Gap 7 (5-15); BUN 17 mg/dL (7-18); BUN/Creat Ratio 11.9 RATIO (10-20); Calcium,Total 8.9 mg/dL (8.5-10.1); Chloride 102 mmol/L (98-107); Creatinine, Serum 1.43 mg/dL (0.55-1.02); EST Glomerular Filtration Rate 38 mL/min (>60); Est Glom Filt Rate - Afr Amer 46 mL/min (>60); Globulin 3.6 g/dL (2.2-4.2); Glucose 110 mg/dL (74-106); Potassium 3.3 mmol/L (3.5-5.1); Protein, Total 6.9 g/dL (6.4-8.2); Sodium Level 139 mmol/L (136-145)
[2023-02-08 16:09] LABS: Lyme IgG P18 Ab Absent (.); Lyme IgG P23 Ab Absent (.); Lyme IgG P28 Ab Absent (.); Lyme IgG P30 Ab Absent (.); Lyme IgG P39 Ab Absent (.); Lyme IgG P41 Ab Present (.); Lyme IgG P45 Ab Absent (.); Lyme IgG P58 Ab Absent (.); Lyme IgG P66 Ab Absent (.); Lyme IgG P93 Ab Absent (.); Lyme IgG WB Interpretation Negative (.); Lyme IgM P23 Ab Absent (.); Lyme IgM P39 Ab Absent (.); Lyme IgM P41 Ab Absent (.); Lyme IgM WB Interpretation Negative (.)
== END | disposition home or self-care (01) ==
LOC: BFHLAB 15:45
PROVIDERS: PCP Family Medicine; Referring Provider Family Medicine; Visit Provider Family Medicine
DX: M10.9 Gout, unspecified (principal); R50.9 Fever, unspecified
CPT/HCPCS: 36415; 80053; 85025; 86617; 87040

== ENCOUNTER 2023-02-04 12:36 | Emergency (ER) | payer MEDICARE, OTHER, SELFPAY ==
[2023-02-04 12:36] VITALS: BP 109/47; PULSE 93; RESP 18; TEMP 37.5; O2SAT 95; BMI 23.0
--- NOTE | 2023-02-04 12:49 | EX.ED.DYSGE1 ---
HPI History of Present Illness Chief Complaint: Fever Detail of Chief Complaint: Fever x6 days Informant: patient Onset/Context/Timing Onset: Days Context: Sudden Onset Timing: Intermittent Quality: Tmax 104.0 ?F Location: Not applicable Current Severity: Gone Maximum Severity: Moderate Worsened by: Nothing Relieved by: Antipyretic Associated Symptoms Associated Symptoms: Nausea with dry heaves, myalgias arthralgias Narrative Narrative: Patient is a 72-year-old woman who went to the [facility] urgent care. Urine revealed leukoesterase and trace blood. Culture was sent. She was started on nitrofurantoin. She was seen at [facility] urgent care on February 02 and had an outpatient chest x-ray because of rales noted left base. There were degenerative changes noted with no obvious infiltrate. The x-ray was reviewed by me and agree there is no acute cardiopulmonary pathology noted. She does report headache. Denies photophobia, visual change, ringing or ears or decreased hearing. She denies rhinorrhea, congestion or sore throat. She denies cough or shortness of breath. She denies hematemesis. She denies diarrhea. She denies urologic symptoms. She has not noted a rash. She states she feels weak. She is concerned because a woman my age should have a fever for 6 days. Prior similar symptoms: No Recent Illness/Hospitalization: No PFSH [facility] Medical History Asthma Atrophic vaginitis Cholelithiasis with chronic cholecystitis Chronic renal failure, stage 3 (moderate) Chronic systolic (congestive) heart failure Conduction disorder of the heart Essential (primary) hypertension Gall stones HLD (hyperlipidemia) Hypokalemia LBBB (left bundle branch block) Non-ischemic cardiomyopathy Osteopenia after menopause PAC (premature atrial contraction) Palpitations PVC (premature ventricular contraction) Scintillating scotoma of both eyes Home Medications aspirin 81 mg tablet,delayed release 81 mg PO DAILY 12/30/13 [History Last Taken 11/06/16] omeprazole 20 mg capsule,delayed release 20 mg PO DAILY 11/06/16 [History Last Taken 10/25/19] calcium carbonate 600 mg calcium (1,500 mg) tablet (Calcium) 600 mg PO BID 01/08/18 [History Last Taken Unknown] coenzyme Q10 100 mg capsule 100 mg PO QDAY 01/08/18 [History Last Taken Unknown] lorazepam 1 mg tablet 0.25 mg PO QHS PRN Anxiety 01/08/18 [History Last Taken Unknown] multivitamin 1 tab PO QDAY 01/08/18 [History Last Taken Unknown] triamcinolone acetonide 55 mcg nasal spray aerosol (Nasacort) 2 sprays intranasal QAM 01/08/18 [History Last Taken Unknown] cholecalciferol (vitamin D3) 50 mcg (2,000 unit) tablet 2,000 unit PO DAILY 10/02/19 [History Last Taken Unknown] vitamin B complex (B Complex-Vitamin B12 tablet) 1 tab PO DAILY 10/02/19 [History Last Taken Unknown] cetirizine 10 mg capsule 10 mg PO DAILY 10/18/19 [History Last Taken Unknown] estradiol 0.01% (0.1 mg/gram) vaginal cream See Rx Instructions vaginal 2XW #42.5 grams 02/24/22 [Rx Last Taken Unknown] losartan 50 mg tablet 50 mg PO QDAY #90 tabs 05/04/22 [Rx Last Taken Unknown] metoprolol succinate 25 mg tablet,extended release 24 hr (Toprol XL) 25 mg PO QDAY #90 tabs 05/23/22 [Rx Last Taken Unknown] prednisone 20 mg tablet 40 mg PO DAILY #8 tabs 12/25/22 [Rx Last Taken Unknown] furosemide 40 mg tablet See Rx Instructions .Route .COMPLEX #90 tabs 01/11/23 [Rx Last Taken Unknown] atorvastatin 10 mg tablet See Rx Instructions .Route .COMPLEX #90 tabs 01/25/23 [Rx Last Taken Unknown] allopurinol 100 mg tablet 100 mg PO DAILY 02/04/23 [History Last Taken Unknown] nitrofurantoin monohydrate/macrocrystals 100 mg capsule 100 mg PO BID 02/04/23 [History Last Taken Unknown] Allergy/AdvReac Type Severity Reaction Status Date / Time Sulfa (Sulfonamide AdvReac Mild Upset Verified 02/04/23 12:39 Antibiotics) Stomach cefdinir [From Omnicef] AdvReac HTN, tight Verified 02/04/23 12:39 chest discomfort erythromycin base AdvReac nausea Verified 02/04/23 12:39 lisinopril AdvReac ROSSY cough Verified 02/04/23 12:39 Family History Father CAD (coronary artery disease) Myocardial infarction, Onset Age: 54 from [place] Arthritis Brother CVA (cerebral vascular accident), Onset Age: 49 Hypertension Mother CVA (cerebral vascular accident), Onset Age: 54 Surgical History History of appendectomy History of cholecystectomy (10/25/19) History of laparotomy (~1986) History of left heart catheterization (04/02/09) History of mastoidectomy (~1966) History of tubal ligation History of tympanoplasty (~1979) Social History Smoking Status: Never smoker alcohol intake: current alcohol intake frequency: a few times a week Alcohol type: wine substance use type: does not use caffeine: Yes Type: coffee what type of physical activity do you participate in: other details: Hi/Low frequency: 3-4 times per week duration: 45-60 minutes/day seatbelt use: always do you feel safe at home: Yes additional social history: -Lee Patient and are both retired ROS ROS ED Constitutional Constitutional ED: Reports chills and fever(s); Denies sweats or weight loss Eyes Eyes: Denies blurry vision, change in vision or diplopia ENT ENT ED: Denies ear pain, rhinorrhea or sore throat Cardiovascular Cardiovascular: Denies chest pain or palpitations Respiratory/Chest Respiratory/Chest: Denies cough, dyspnea or dyspnea on exertion Gastrointestinal Gastrointestinal: Reports nausea; Denies abdominal pain, diarrhea, melena or vomiting Genitourinary Genitourinary ED: Denies dysuria, hematuria or urinary frequency Musculoskeletal Musculoskeletal: Denies arthralgias, back pain, myalgias or neck pain Integumentary Denies rash Neurologic Neurologic: Denies headache(s), paresthesias or weakness Endocrine Endocrinology: Denies cold intolerance or heat intolerance Hematologic/Lymphatic Hematologic/Lymphatic: Reports systems reviewed and no addt'l complaints, except as documented EXAM Physical Exam Const Vital Signs: 02/04/23 12:36 02/04/23 12:58 02/04/23 13:54 Temperature 99.5 F H 98.5 F Temperature Source Oral Temporal Pulse Rate 93 86 Respiratory Rate 18 18 Respiratory Effort Normal Non-Labored Respiratory Pattern Normal Blood Pressure 109/47 L 117/59 L Blood Pressure Mean 67 78 Pulse Ox 95 95 Oxygen Delivery Method Room Air Room Air Positive well nourished and well developed Constitutional Narrative: Patient does not appear well. She does not appear toxic. General Appearance ED: well developed and NAD HEENT Reports dry mucous membranes HEENT Narrative: Head is atraumatic and normocephalic. Nares patent. Posterior pharynx out erythema or exudate. Mouth ED: Yes dry mucous membranes Mouth: dry mucous membranes Eyes PERRL and EOMs intact bilaterally General Eye ED: Negative for pale conjunctiva or scleral icterus Neck no lymphadenopathy and no JVD Chest Wall inspection of chest normal and palpation of chest normal Resp normal respiratory effort and No clear to auscultation bilaterally Auscultation: rales left base; Negative for rhonchi, wheezes or diminished lung sounds Cardio regular rate, regular rhythm, S1 normal heart sound, S2 normal heart sound and no murmurs GI normal to inspection, nondistended, normoactive bowel sounds, non-tender, non-distended and no masses; Negative for hepatosplenomegaly Palpation: soft Back/Spine no CVA tenderness Cervical Spine: Negative for cervical spine tenderness Thoracic Spine / Upper Back: Negative for thoracic spinal tenderness Lumbar Spine / Lower Back: Negative for lumbar spinal tenderness Extremity normal to inspection Neuro oriented x3, CN's II-XII intact bilaterally and no sensory deficits noted Sensorium / Orientation: alert Psych mental status grossly normal Skin no rashes or lesions noted, no wounds and skin turgor normal MDM MDM MDM Narrative Medical decision making narrative: Presents with persistent fever need to assess for viral versus bacterial cause. Since patient had a chest x-ray on February 02 this was not repeated. Will obtain UA to determine if there is still evidence of possible infection. CBC was obtained to assess H&H and white count. BMP to assess renal function and electrolytes. Since patient clinically appears dehydrated 1 L of normal saline was ordered. She presently is not febrile but her temperature is slightly elevated 99.5. History & Record Review Additional record(s) reviewed:: Prior outpatient record (Blood work and UA/urine culture from [facility] dated January 31 was reviewed. Patient has mixed joselo and findings are not consistent with infection.) Lab Data Attestation: I reviewed the patient's lab results. Lab results narrative: White count is unremarkable basic metabolic panel was elevated creatinine of 1.21 with a GFR 46. Patient has known chronic kidney disease stage II/III. UA is negative. Labs: Laboratory Results - last 24 hr 02/04/23 02/04/23 02/04/23 12:55 12:55 13:45 WBC 7.2 RBC 4.19 L Hgb 13.3 Hct 40.3 MCV 96.2 MCH 31.7 MCHC 33.0 RDW Std Deviation 46.1 H RDW Coeff of Amanda 13.0 Plt Count 167 MPV 9.3 Immature Gran % (Auto) 0.700 Neut % (Auto) 68.2 Lymph % (Auto) 19.9 Mccone % (Auto) 6.6 Eos % (Auto) 3.2 Baso % (Auto) 1.4 H Absolute Neuts (auto) 4.9 Absolute Lymphs (auto) 1.44 Nucleated RBC % 0 Sodium 140 Potassium 3.0 L Chloride 103 Carbon Dioxide 31.0 Anion Gap 6 BUN 16 Creatinine 1.21 H Estim Creat Clear Calc 35.22 Est GFR (MDRD) Af Amer 56 L Est GFR (MDRD) Non-Af 46 L BUN/Creatinine Ratio 13.2 Glucose 96 Calcium 8.7 Urine Color Yellow Urine Clarity Clear Urine pH 8.0 Ur Specific [place] 1.015 Urine Protein Negative Urine Glucose (UA) Normal Urine Ketones Negative Urine Occult Blood 10 H Urine Nitrite Negative Urine Bilirubin Negative Urine Urobilinogen Normal Ur Leukocyte Esterase 25 H Urine RBC 0 SEEN Urine WBC 0 SEEN Ur Squamous Epith Cells 0-5 SEEN Urine Bacteria 0 SEEN Urine Mucus 0 SEEN Treatment and Re-Evaluation :: Patient was made aware that her work-up is unremarkable. This most likely represents a viral infection. Her questions were asked. She was informed if she still has a fever after an additional week then she should follow-up for work-up for autoimmune disorder etc. Discharge Plan Triage Chief Complaint: Fever ED Provider: Yasir Cherry Dx/Rx/DC Orders Clinical Impression: Fever, HLD (hyperlipidemia), Essential (primary) hypertension, Chronic renal failure, stage 3 (moderate), Myalgia, Arthralgia Instructions: ED Fever Control (Adult), ED Viral Syndrome (Adult) Prescriptions: No Action calcium carbonate [Calcium 600] 600 mg calcium (1,500 mg) tablet 600 mg PO BID multivitamin tablet 1 tab PO QDAY Label Comments: one tablet PO QDAY Rx Instructions: one tablet PO QDAY coenzyme Q10 100 mg capsule 100 mg PO QDAY Label Comments: One capsule PO QDAY Rx Instructions: One capsule PO QDAY lorazepam 1 mg tablet 0.25 mg PO QHS PRN (Reason: Anxiety) Label Comments: 1/4 to 1 tablet PO QHS PRN Rx Instructions: 1/4 to 1 tablet PO QHS PRN triamcinolone acetonide [Nasacort] 55 mcg aerosol,spray 2 sprays INTRANASAL QAM Label Comments: 2 sprays INTRANASAL QAM Rx Instructions: 2 sprays INTRANASAL QAM cholecalciferol (vitamin D3) 2,000 unit tablet 2,000 unit PO DAILY vitamin B complex [B Complex-Vitamin B12] Tablet 1 tab PO DAILY estradiol 0.01 % (0.1 mg/gram) cream See Rx Instructions vaginal 2XW Qty: 42.5 2RF Rx Instructions: small amount vaginal twice a week; use small amount VAGINAL 2XW aspirin 81 MG tablet 81 mg PO DAILY Label Comments: blood thinner omeprazole 20 MG capsule 20 mg PO DAILY cetirizine 10 MG capsule 10 mg PO DAILY prednisone 20 mg tablet 40 mg PO DAILY Qty: 8 0RF allopurinol 100 mg tablet 100 mg PO DAILY Label Comments: TAKE 1 TABLET BY MOUTH EVERY DAY nitrofurantoin monohyd/m-cryst 100 mg capsule 100 mg PO BID losartan 50 mg tablet 50 mg PO QDAY Qty: 90 3RF metoprolol succinate [Toprol XL] 25 mg tablet extended release 24 hr 25 mg PO QDAY Qty: 90 3RF Rx Instructions: One tablet PO QDAY furosemide 40 mg tablet See Rx Instructions .ROUTE .COMPLEX Qty: 90 4RF Dose Instruction: TAKE 1 TABLET BY MOUTH EVERY DAY Rx Instructions: TAKE 1 TABLET BY MOUTH EVERY DAY atorvastatin 10 mg tablet See Rx Instructions .ROUTE .COMPLEX Qty: 90 3RF Dose Instruction: TAKE 1 TABLET BY MOUTH EVERY NIGHT AT BEDTIME Rx Instructions: TAKE 1 TABLET BY MOUTH EVERY NIGHT AT BEDTIME Primary Care Provider: Jodi Duong Referrals: Jodi Duong DO [Primary Care Provider] - 1 Week if not improving Disposition Disposition: Home, Self Care
[2023-02-04] MEDS: 0.9% Normal Saline 1,000 ML 1000 ML IV (12:56)
[2023-02-04 13:14] LABS: Absolute Lymphocyte Count 1.44 X10^3/uL (0.83-4.51); Absolute Neutrophil Count 4.9 X10^3/uL (2.0-7.7); Anion Gap 6 (5-15); BUN 16 mg/dL (7-18); BUN/Creat Ratio 13.2 RATIO (10-20); Basophil% 1.4 % (0-1); Calcium,Total 8.7 mg/dL (8.5-10.1); Chloride 103 mmol/L (98-107); Creatinine, Serum 1.21 mg/dL (0.55-1.02); EST Glomerular Filtration Rate 46 mL/min (>60); Eosinophil# 0.23 X10^3/uL; Eosinophils% 3.2 % (0-5); Est Glom Filt Rate - Afr Amer 56 mL/min (>60); Estimated Creatinine Clearance 35.22 ml/min; Glucose 96 mg/dL (74-106); Hematocrit 40.3 % (37-47); Hemoglobin 13.3 g/dL (12.0-15.0); Lymphocyte # 1.44 X10^3/ul (0.83-4.51); Lymphocyte % 19.9 % (19-41); Mean Corpuscular Hgb 31.7 pg (27.0-32.0); Mean Corpuscular Volume 96.2 fL (81-99); Mean Platelet Vol. 9.3 fl (6.2-12.0); Monocyte# 0.48 X10^3/uL; Monocyte% 6.6 % (0-10); NRBC Flagged by Analyzer 0 % (0-5); Neutrophil # 4.93 X10^3/uL (2.7-7.7); Neutrophil % 68.2 % (47-70); Platelet Count 167 K/mm3 (150-450); RBC Distribution Width SD 46.1 fl (35.1-43.9); Red Blood Count 4.19 M/mm3 (4.2-5.4); Sodium Level 140 mmol/L (136-145); White Blood Count 7.2 K/mm3 (4.4-11.0)
[2023-02-04 13:54] VITALS: BP 117/59; PULSE 86; RESP 18; TEMP 36.9; O2SAT 95
[2023-02-04 13:57] LABS: Bacteria 0 SEEN /hpf (None Seen); Mucous, Urine 0 SEEN /hpf (<or=2+); Red Blood Cells-Urine 0 SEEN /hpf (0-5); White Blood Cells 0 SEEN /hpf (0-5)
[2023-02-04 14:03] LABS: Color, Urine Yellow (Yellow); Glucose, Dipstick Normal (Normal); Ketone-Dipstick Negative (Negative); Leukocyte Esterase-Dipstick 25 /ul (Negative); Nitrite-Dipstick Negative (Negative); Occult Blood-Urine 10 /ul (Negative); Protein-Dipstick Negative (Negative); Specific Gravity, Urine 1.015 (1.002-1.030); Urine Bilirubin Dipstick Negative (Negative); Urine Clarity Clear (Clear); Urine Urobilinogen Normal (Normal)
[2023-02-04 14:14] LABS: Squamous Epithelial Cells - UA 0-5 SEEN /hpf (5-10)
== END 2023-02-04 14:40 | disposition home or self-care (01) ==
PROVIDERS: Emergency Provider Emergency Medicine; PCP Family Medicine; Visit Provider Emergency Medicine
DX: R50.9 Fever, unspecified (principal); I13.0 Hypertensive heart and chronic kidney disease with heart failure and stage 1 through stage 4 chronic kidney disease, or unspecified chronic kidney disease; I50.22 Chronic systolic (congestive) heart failure; N18.30 Chronic kidney disease, stage 3 unspecified; E78.5 Hyperlipidemia, unspecified; M79.10 Myalgia, unspecified site; M25.50 Pain in unspecified joint; Z79.82 Long term (current) use of aspirin; Z79.899 Other long term (current) drug therapy; Z79.51 Long term (current) use of inhaled steroids; Z90.49 Acquired absence of other specified parts of digestive tract
CPT/HCPCS: 80048; 81001; 85025; 96360; 99283; J7030

== ENCOUNTER → 2023-03-28 | Outpatient (CLI) | payer OTHER, SELFPAY ==
[2023-03-28 09:45] LABS: AST(SGOT) 29 U/L (15-37); Alanine Aminotransfer ALT/SGPT 27 U/L (13-56); Albumin, Serum 3.5 g/dL (3.2-5.0); Alkaline Phosphatase 73 U/L (45-117); Cholesterol 135 mg/dL (200); Globulin 3.3 g/dL (2.2-4.2); High Density Lipoprotein 43 mg/dL; Protein, Total 6.8 g/dL (6.4-8.2); Triglycerides 174 mg/dL; Very Low Density Lipoprotein 35 mg/dL (5-40)
== END | disposition home or self-care (01) ==
LOC: LAB 08:33
PROVIDERS: Nurse Practitioner Gerontology; PCP Family Medicine; Referring Provider Internal Medicine Cardiovascular Disease; Visit Provider Internal Medicine Cardiovascular Disease
DX: E78.00 Pure hypercholesterolemia, unspecified (principal)
CPT/HCPCS: 36415; 80061; 80076

== ENCOUNTER → 2023-07-04 | Outpatient (CLI) | payer MEDICARE, SELFPAY ==
--- NOTE | 2023-07-04 08:42 | BI_ITS ---
MAMMOGRAPHY - BILATERAL SCREENING REASON FOR EXAM: Female, 72 years old. Routine annual screening examination. PERTINENT HISTORY: Non-contributory. TECHNIQUE: Digital bilateral breast margarito (3D mammographic acquisition) in the CC and MLO projections. 2-D mediolateral oblique (MLO) and craniocaudad (CC) views of both breasts were obtained. CAD: Full Field Digital Mammography with Computer Added Detection was performed. COMPARISON: Comparison is made with prior study March 22, 2022 and March 19, 2021. FINDINGS: Breast Composition: The breasts are heterogeneously dense, which may obscure small masses. There are no dominant masses or suspicious calcifications. No other significant abnormalities are identified. There has been no significant change since the prior study. BI/SCRN MAMM (CAD)W/MARGARITO BILAT IMPRESSION: Stable bilateral screening mammogram. Yearly follow-up mammogram recommended. (A) ASSESSMENT CATEGORY: BIRADS Category 1: Negative. A letter regarding these results will be sent to the patient by the facility within 30 days. Approximately 10% of breast cancers are not detected by mammography. A normal mammogram should not delay biopsy of a clinically suspicious abnormality. [id number] Electronically Signed: Hugh Perry MD at 9:47 EDT ,
== END | disposition home or self-care (01) ==
LOC: OPBI 08:42
PROVIDERS: PCP Family Medicine; Referring Provider Nurse Practitioner Women's Health; Visit Provider Nurse Practitioner Women's Health
DX: Z12.31 Encounter for screening mammogram for malignant neoplasm of breast (principal)
CPT/HCPCS: 77063; 77067

== ENCOUNTER → 2023-12-28 | Outpatient (CLI) | payer MEDICARE, SELFPAY | END | disposition home or self-care (01) | PROVIDERS: PCP Family Medicine; Referring Provider Dermatology; Visit Provider Dermatology | DX: K13.0 Diseases of lips (principal) | CPT/HCPCS: 87070; 87077; 87186; 87205 ==

== ENCOUNTER → 2024-04-02 | Outpatient (CLI) | payer MEDICARE, SELFPAY ==
[2024-04-02 09:36] LABS: AST(SGOT) 60 U/L (15-37); Alanine Aminotransfer ALT/SGPT 48 U/L (13-56); Albumin, Serum 3.5 g/dL (3.2-5.0); Alkaline Phosphatase 65 U/L (45-117); Bilirubin, Direct 0.17 mg/dL (0.00-0.30); Cholesterol 140 mg/dL (200); Globulin 3.2 g/dL (2.2-4.2); High Density Lipoprotein 48 mg/dL; Protein, Total 6.7 g/dL (6.4-8.2); Triglycerides 138 mg/dL; Very Low Density Lipoprotein 28 mg/dL (5-40)
== END | disposition home or self-care (01) ==
LOC: LAB 07:56
PROVIDERS: PCP Family Medicine; Referring Provider Nurse Practitioner Gerontology; Visit Provider Nurse Practitioner Gerontology
DX: E78.00 Pure hypercholesterolemia, unspecified (principal)
CPT/HCPCS: 36415; 80061; 80076

== ENCOUNTER → 2024-05-14 | Outpatient (CLI) | payer MEDICARE, SELFPAY ==
[2024-05-14 09:43] LABS: AST(SGOT) 34 U/L (15-37); Alanine Aminotransfer ALT/SGPT 33 U/L (13-56); Albumin, Serum 3.6 g/dL (3.2-5.0); Alkaline Phosphatase 72 U/L (45-117); Bilirubin, Direct 0.16 mg/dL (0.00-0.30); Globulin 3.1 g/dL (2.2-4.2); Protein, Total 6.7 g/dL (6.4-8.2)
== END | disposition home or self-care (01) ==
LOC: LAB 08:33
PROVIDERS: PCP Family Medicine; Referring Provider Physician Assistant Medical; Visit Provider Physician Assistant Medical
DX: R79.89 Other specified abnormal findings of blood chemistry (principal)
CPT/HCPCS: 36415; 80076

== ENCOUNTER → 2024-07-08 | Outpatient (CLI) | payer OTHER, SELFPAY ==
--- NOTE | 2024-07-08 10:30 | BI_ITS ---
MAMMOGRAPHY - BILATERAL SCREENING REASON FOR EXAM: Female, 73 years old. Routine annual screening examination. PERTINENT HISTORY: Non-contributory. TECHNIQUE: Digital bilateral breast margarito (3D mammographic acquisition) in the CC and MLO projections. 2-D mediolateral oblique (MLO) and craniocaudad (CC) views of both breasts were obtained. CAD: Full Field Digital Mammography with Computer Added Detection was performed. COMPARISON: Comparison is made with prior study July 04, 2023 and March 22, 2022. FINDINGS: Breast Composition: The breasts are heterogeneously dense, which may obscure small masses. There are no dominant masses or suspicious calcifications. No other significant abnormalities are identified. There has been no significant change since the prior study. BI/SCRN MAMM (CAD)W/MARGARITO BILAT IMPRESSION: Stable bilateral screening mammogram. Yearly follow-up mammogram recommended. (A) ASSESSMENT CATEGORY: BIRADS Category 1: Negative. A letter regarding these results will be sent to the patient by the facility within 30 days. Approximately 10% of breast cancers are not detected by mammography. A normal mammogram should not delay biopsy of a clinically suspicious abnormality. [id number] Electronically Signed: Hugh Perry MD at 11:14 EST ,
== END | disposition home or self-care (01) ==
LOC: OPBI 10:30
PROVIDERS: PCP Family Medicine; Referring Provider Nurse Practitioner Women's Health; Visit Provider Nurse Practitioner Women's Health
DX: Z12.31 Encounter for screening mammogram for malignant neoplasm of breast (principal)
CPT/HCPCS: 77063; 77067

== ENCOUNTER → 2024-09-13 | Outpatient (CLI) | payer MEDICARE, OTHER, SELFPAY ==
--- NOTE | 2024-09-13 10:54 | MRI_ITS ---
STUDY: MRA OF THE HEAD WITHOUT CONTRAST REASON FOR EXAM: Female, 73 years old. VISION CHANGES seeing prisms episodes intermittently x1yr TECHNIQUE: 3-D rpuh-[id number]-cfgbmt (TOF) imaging was performed with MIPs. The study was performed unenhanced. COMPARISON: CTA and noncontrast CT of the head dated July 31, 2019. MRI of the brain dated July 12, 2019. FINDINGS: Normal bilateral petrous carotid arteries. Normal right cavernous carotid artery with a normal supraclinoid bifurcation. There is atheromatous plaque formation of the left cavernous carotid artery, with a mild stenosis (less than 50%). Normal right A1 segments of the anterior cerebral artery. Normal left A1 segments of the anterior cerebral artery. Normal intact anterior communicating artery (ACOM). Normal bilateral A2 segments of the anterior cerebral arteries. Normal right M1 and M2 segments of the middle cerebral arteries, with a normal M1 bifurcation. Normal left M1 and M2 segments of the middle cerebral arteries, with a normal M1 bifurcation. Normal right posterior communicating artery (PCOM). Normal left posterior communicating artery (PCOM). There is a small atretic right vertebral artery with a dominant left vertebral artery. Normal basilar artery with a normal basilar bifurcation. The visualized bilateral superior cerebellar (SCA) arteries are normal. Normal bilateral P1, P2 and visualized P3 segments of the posterior cerebral arteries. There is no demonstrated aneurysm of the [place] of [place]. There is no major vessel occlusion or hemodynamically significant stenosis. MRI/MRA Head ONLY without Contrast IMPRESSION: 1. There is no demonstrated aneurysm of the [place] of [place]. There is no major vessel occlusion or hemodynamically significant stenosis. Electronically Signed: Lev Phan MD at 13:54 EST Reading Location ID and State: [facility] / [place] , Service support ,
== END | disposition home or self-care (01) ==
PROVIDERS: PCP Family Medicine; Referring Provider Family Medicine; Visit Provider Family Medicine
DX: H53.123 Transient visual loss, bilateral (principal)
CPT/HCPCS: 70544

== ENCOUNTER → 2024-09-30 | Outpatient (CLI) | payer MEDICARE, OTHER, SELFPAY ==
--- NOTE | 2024-09-30 10:42 | RAD_ITS ---
INDICATION: HIP PAIN EXAMINATION/TECHNIQUE: X-RAY - XR Hips Bilateral with Pelvis when performed; Min 5 Views COMPARISON: No relevant prior comparison study available. FINDINGS: PELVIC BONES: No displaced fracture, destructive or sclerotic lesions. Note that overlapping bowel shadows may however obscure fine detail. Sacroiliac joints are unremarkable. No widening of the pubic symphysis. HIPS: The articular structures are unremarkable. No displaced fracture seen in this frontal view. SOFT TISSUES: No soft tissue swelling or gas. RAD/Hips B/L min 2 views w/ Pelvis IMPRESSION: No evidence of displaced pelvic or hip fracture. Electronically Signed: Brian Johnson MD at 14:08 EST ,
== END | disposition home or self-care (01) ==
LOC: MTRAD 10:40
PROVIDERS: PCP Family Medicine; Referring Provider Family Medicine; Visit Provider Family Medicine
DX: M25.551 Pain in right hip (principal); M25.552 Pain in left hip
CPT/HCPCS: 73521

== ENCOUNTER 2024-11-19 13:00 | Outpatient (RCR) | payer MEDICARE, OTHER, SELFPAY ==
--- NOTE | 2024-10-29 10:56 | HP.PTEVAL ---
Patient's Visit Information Visit Information Visit Information: LOCO LARSON is a 74 year old F referred to Physical Therapy by Dr. Jodi Duong DO with a diagnosis of Hip pain. Date of Evaluation: 10/29/24 Physical Therapist: Pascual Claros, SURAJT, OCS, CSCS Visit Plan Frequency: 2x /Week Duration: 4-6 Weeks Plan: 2x/week for 3-6 weeks... 1. rollout and STM to B gluts, piriformis, ITB and HS, MH and stretch to B ITB and HS 2. strength hips to increase blood flow and stabilize, to HEP/gym with list/pics IE HEP: HS, pirirformis and ITB standing stretch 30 4x daily Subjective Subjective: My his bother me, x rays show nothing. Has not been able to lie on L hip for years. Most pain is R side ... does all the vaccuuming and she cannot push o grocery cart so has to do it. Crossing legs will make her worse after a while. Hard to step forward with R after sitting for a while. Worsening in last 6 months for unknown reason. R hip: only if crossing legs or sitting too long. Walking on rubberized surface hurts. Grass is OK. L hip is posterior lateral pain. Regular ex: 3 days to [employer] class [employer]es [employer] 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 No back problems. Pain L hip: Pain Intensity (Out of 10): 0 Pain Intensity Range: 0 and 4 Comment: only if lie on it. Objective Objective: Walks into PT I, transfers chair and table I. Posture is Fw head and flat lordosis slightly. Tender to palpation in piriformis area B and ITB B and over GT. tightness is noted in B ITB and HS with a -25 90/90 test B. Hip aROM WFL and without pain, symmetrical side to side and no evcidenc eof deegeneration effecting motion or pain. knee and ankle aROM WFL reflexes 2/3 patella and achilles B Sensation LE WNL to gross light touch B. strength hips abd and ext 3+ with pain abd B, flexion 4- with contralateral hip rotation. Core strength 4- abs and ext knees 4- flexion adn 4 ext B without pain. ankles 4 all directions. marching, heel walk, toe walk and butt kicks without pain. - MICHELLE, - JATINDER Perkins. Balance/Special Test Scores Lower Extremity Functional Score: 66 Goals Goal 1:: push grocery cart without pain and vaccuum Goal Time Frame: 4-6 Weeks Goal 2:: pain 75% better at 1/10 at worst and manageable Goal Time Frame: 4-6 Weeks Goal 3:: LEFS score 60 Goal Time Frame: 4-6 Weeks Goal 4:: I appropriate HEP to limit future problems Goal Time Frame: 4-6 Weeks Goal 5:: Lie on L side without pain for 15 minutes Goal Time Frame: 4-6 Weeks Rehabilitation Potential Physical Therapy Diagnosis: tightness and weakness in hips contributing to inflammation and pain with certain activities. Rehabilitation Potential: Good Anticipated Interventions Patient/Client Instruction: Educate patient on: Condition and Plan of Care For the Purpose of:: To decrease pain, To increase ROM, To improve nutrient delivery to tissue, To improve muscle performance and motor function and To increase tolerance to activity/condition/position Therapeutic Exercise to Include: Strength training, Flexibilty training, Passive ROM and Active ROM For the Purpose of:: To decrease pain, To increase ROM, To improve nutrient delivery to tissue and To improve muscle performance and motor function Manual Therapy Techniques to Include: Mobilization, Passive ROM and Soft tissue mobilization For the Purpose of:: To decrease pain, To increase ROM, To improve nutrient delivery to tissue, To increase oxygenation perfusion and To increase tolerance to activity/condition/position Thermo therapy (hot pack): Yes For the Purpose of:: To decrease pain and To improve nutrient delivery to tissue Text: Thank you for the opportunity to evaluate your patient. For Medicare and Medicare HMO plans, please review the plan of care and approve it. It will need to be FAXED BACK to us at [phone] for Medicare purposes. For Medicare only, by signing this I certify the plan of care. Please let me know if there are questions or concerns regarding this plan of care. Physician Signature: Date:
--- NOTE | 2024-11-19 13:58 | HP.PTDCSUM ---
Discharge Summary D/C summary: It has been my pleasure to treat LOCO LARSON referred by Dr. Jodi Duong DO, with the diagnosis of Hip pain for a total of 7 visit(s). Discharge Date: 11/19/24 Please see the following information for a summary of their discharge status. Subjective Subjective: Legs feel stronger. Pain in r groin with crossing legs. Can only lie on L hip for 3 minutes before painful. Pain is a loittle better overall but still prolems on right side and in L groin. Pain L hip: Pain Intensity (Out of 10): 0 Overall Improvement % Improvement: 0 Objective Objective/Function: r hip with positive FADDIR and pain with flexion and cannot rule out labral pathology. - MICHELLE L trochanter still painful. No antlagia in gait and manageable unless lis on L side. Goals Goal 1:: push grocery cart without pain and vaccuum Goal Progress: Not Progressing Goal 2:: pain 75% better at 1/10 at worst and manageable Goal Progress: Not Progressing Goal 3:: LEFS score 60 Goal Progress: Not Progressing Goal 4:: I appropriate HEP to limit future problems Goal Progress: Goal Met Goal 5:: Lie on L side without pain for 15 minutes Goal Progress: Not Progressing Plan Plan: dc to HEP. Pt to manage it and contact doctor if needs further D/C Information Discharge Comments: pt to manage at home and contact doctor if problematic, not any better pain garay but getting stronger. d/c sentence: If there are questions or concerns regarding this patient's physical therapy, please feel free to call me at [phone]. Thank you for the referral of this patient. Sincerely, Pascual Claros, DPT, OCS, CSCS Balance/Gait/Functional tests Balance/Special Test Scores Lower Extremity Functional Score: 56 Improvement % Improvement: 0
== END 2024-11-19 14:43 | disposition home or self-care (01) ==
LOC: PT 13:00
PROVIDERS: PCP Family Medicine; Referring Provider Family Medicine; Visit Provider Family Medicine
DX: M25.551 Pain in right hip (principal); M25.552 Pain in left hip
CPT/HCPCS: 97110; 97161; 97164

== ENCOUNTER → 2025-05-22 | Outpatient (CLI) | payer MEDICARE, OTHER, SELFPAY ==
[2025-05-22 10:54] LABS: AST(SGOT) 37 U/L (<=31); Alanine Aminotransfer ALT/SGPT 22 U/L (<=34); Albumin, Serum 4.2 g/dL (3.4-4.8); Alkaline Phosphatase 77 U/L (35-104); Bilirubin, Direct 0.20 mg/dL (0.00-0.30); Cholesterol 144 mg/dL (<=200); Globulin 2.7 g/dL (2.2-4.2); Low Density Lipoprotein Calc. 70 mg/dL; Triglycerides 163 mg/dL; Very Low Density Lipoprotein 33 mg/dL (5-40); cholesterol:hdl ratio screen 3.49
== END | disposition home or self-care (01) ==
LOC: LAB.FUTURE 14:58
PROVIDERS: Internal Medicine Cardiovascular Disease; PCP Family Medicine; Referring Provider Family Medicine; Visit Provider Family Medicine
DX: Z51.81 Encounter for therapeutic drug level monitoring (principal); E78.5 Hyperlipidemia, unspecified
CPT/HCPCS: 36415; 80061; 80076

== ENCOUNTER → 2025-05-22 | Outpatient (CLI) | payer MEDICARE, OTHER, SELFPAY | END | disposition home or self-care (01) | LOC: LAB 08:48 | PROVIDERS: PCP Family Medicine; Referring Provider Internal Medicine Cardiovascular Disease; Visit Provider Internal Medicine Cardiovascular Disease | DX: Z00.00 Encounter for general adult medical examination without abnormal findings (principal) ==

== ENCOUNTER → 2025-07-08 | Outpatient (CLI) | payer MEDICARE, OTHER, SELFPAY ==
--- NOTE | 2025-07-08 14:18 | RAD_ITS ---
EXAM: XR Left Knee Complete, 4 or More Views CLINICAL INDICATION: PAIN IN KNEE TECHNIQUE: Four or more views of the left knee. COMPARISON: No relevant prior studies available. FINDINGS: BONES/JOINTS: Unremarkable. No acute fracture. No dislocation. SOFT TISSUES: Soft tissue swelling. RAD/Knee 4 or More Views IMPRESSION: Soft tissue swelling. Reading [facility]
== END | disposition home or self-care (01) ==
LOC: MTRAD 14:17
PROVIDERS: PCP Family Medicine; Referring Provider Nurse Practitioner Family; Visit Provider Nurse Practitioner Family
DX: M25.562 Pain in left knee (principal)
CPT/HCPCS: 73564

== ENCOUNTER → 2025-07-17 | Outpatient (CLI) | payer MEDICARE, OTHER, SELFPAY ==
--- NOTE | 2025-07-17 12:45 | BI_ITS ---
EXAM: SCRN MAMM (CAD)W/MARGARITO BILAT DATE: 07/17/2025 CLINICAL HISTORY: F, Age 74 y/o , SCREEN FOR BREAST CANCER No family history. TECHNIQUE: Procedure Code: [id number] Modality: MG Procedure: SCRN MAMM (CAD)W/MARGARITO BILAT COMPARISON: Prior exam(s) dated July 08, 2024.. FINDINGS: TISSUE DENSITY: The breasts are extremely dense, which lowers the sensitivity of mammography. Bilateral Breast Mammographic Findings: No significant masses, calcifications or other abnormalities are identified. Stable fat containing bilateral axillary lymph nodes. No suspicious masses, areas of developing architectural distortion, or suspicious calcifications. There has been no significant interval change. BI/SCRN MAMM (CAD)W/MARGARITO BILAT IMPRESSION: Stable bilateral screening mammogram. OVERALL FINAL ASSESSMENT BI-RADS 2: BENIGN RECOMMENDATION: Routine annual follow-up in 1 Year Additional Recommendation none A letter with findings and recommendations will be mailed to the patient. Reading Location: [place] [id number]
== END | disposition home or self-care (01) ==
PROVIDERS: PCP Family Medicine; Referring Provider Nurse Practitioner Women's Health; Visit Provider Nurse Practitioner Women's Health
DX: Z12.31 Encounter for screening mammogram for malignant neoplasm of breast (principal)
CPT/HCPCS: 77063; 77067

== ENCOUNTER → 2025-08-04 | Outpatient (CLI) | payer MEDICARE, OTHER, SELFPAY ==
[2025-08-04 13:22] LABS: Hematocrit 44.1 % (37-47); Hemoglobin 14.4 g/dL (12.0-15.0); Immature Granulocytes Count 0.030 X10^3/uL (0.0-0.0); Mean Corp Hgb Conc 32.7 g/dL (32-36); Mean Corpuscular Volume 98.0 fL (81-99); Mean Platelet Vol. 9.7 fl (6.2-12.0); NRBC Flagged by Analyzer 0 % (0-5); Platelet Count 296 K/mm3 (150-450); RBC Distribution Width CV 12.8 % (11.6-14.6); RBC Distribution Width SD 46.3 fl (35.1-43.9); Red Blood Count 4.50 M/mm3 (4.2-5.4); White Blood Count 8.2 K/mm3 (4.4-11.0)
[2025-08-04 14:12] LABS: Anion Gap 9 (5-15); BUN 19 mg/dL (4-19); BUN/Creat Ratio 15.1 RATIO (10-20); Calcium,Total 10.1 mg/dL (7.6-11.0); Carbon Dioxide 32.7 mmol/L (21.0-32.0); Chloride 101 mmol/L (98-108); Glucose 86 mg/dL (70-99); Potassium 3.9 mmol/L (3.3-5.1); Vitamin D,25 Hydroxy 84.7 ng/mL (30-100)
== END | disposition home or self-care (01) ==
PROVIDERS: PCP Family Medicine; Referring Provider Family Medicine; Visit Provider Family Medicine
DX: Z51.81 Encounter for therapeutic drug level monitoring (principal); E55.9 Vitamin D deficiency, unspecified
CPT/HCPCS: 36415; 80048; 82306; 85025